=== PATIENT | male | born 1945 | race Caucasian/White ===

== ENCOUNTER → 2016-11-08 07:03 | Day surgery (SDC) | payer MEDICARE, BC ==
--- NOTE | 2016-11-05 15:33 | HP ---
DATE OF ADMISSION: 11/08/2016. This patient is scheduled for Same Day Surgery admission by Dr. Moore on November. DATE OF PREOPERATIVE HISTORY AND PHYSICAL EXAMINATION: Saturday, November 05, 2016. ATTENDING SURGEON: Dr. Mark Moore (dictated by Stella Truong NP). CHIEF COMPLAINT: Left groin hernia. HISTORY OF PRESENT ILLNESS: The patient is a 71-year-old male referring to Dr. Moore from Dr. Harper and Dr. Henderson for evaluation of a left inguinal hernia. The patient states this has become increasingly large, but he denies any significant pain. He denies any dysuria or changes in bowel habits, and denies any signs or symptoms to suggest incarceration or strangulation. Dr. Moore examined the patient and notes a left inguinal hernia, moderately large, extending down into the upper scrotal sac, soft and reducible. There is also a 3 cm umbilical hernia which is soft and reducible. Dr. Moore discussed the findings with the patient and has recommended open repair of the left inguinal hernia with mesh as a same day surgery procedure. Dr. Moore discussed the nature of the surgical procedure, the rationale for the procedure, the relevant risks and benefits, and today I reviewed the typical postoperative care and recovery. The patient and his have had a chance to ask questions and stated that they understand the information and are satisfied with the answers given to their questions. The patient will sign surgical consent on the day of surgery. The patient has been cleared by Dr. Perdomo from Cardiology to proceed with surgery. PAST MEDICAL HISTORY: Significant for aortic stenosis with aortic valve replacement and two vessel coronary artery bypass grafting July 2016; hypertension; myasthenia gravis, adult form; paroxysmal atrial fibrillation; hyperlipidemia; benign prostatic hypertrophy; impaired hearing; deep vein thrombosis left upper extremity 1998. PAST SURGICAL HISTORY: Aortic valve replacement with a tissue valve #[id number] [employer], July 2016 at [facility] in [place], [place], and at that same setting he had CABG times two; transurethral resection of prostate; total right knee replacement; arthroscopic surgery left knee; cataract extraction; and tonsillectomy in childhood. MEDICATIONS: 1. Mycophenolate Mofetil 500 mg two tablets b.i.d. 2. Zolpidem 5 mg p.o. at bedtime. 3. Valsartan 40 mg p.o. daily. 4. Azopt one percent one drop left eye t.i.d. 5. Androderm 2 mg per 24 hours as directed. 6. Simvastatin 20 mg p.o. daily. 7. Levitra 20 mg p.o. daily as needed. 8. Travatan Z 0.004 percent one drop left eye daily. 9. Aspirin 81 mg p.o. daily. The patient was instructed to continue the aspirin in the perioperative period. 10. APAP 325 mg two tablets q.6 prn. 11. Metoprolol 12.5 mg p.o. b.i.d. 12. Loratadine 10 mg prn allergy symptoms. ALLERGIES: No known drug allergies. He does have ENVIRONMENTAL ALLERGIES. FAMILY HISTORY: Father , age 49 with myocardiac infarction; mother , age 88 with a history of colon cancer and congestive heart failure. No known anesthesia complications, bleeding tendencies or clotting disorders. SOCIAL HISTORY: He is and his accompanies him to the visit today. He is a nonsmoker and denies the use of alcohol or other substances. He is currently in cardiac rehab and also walks daily for exercise. REVIEW OF SYSTEMS: He denies any racing or palpitations of the heart. He denies chest pain, pressure, heaviness or exercise intolerance, and he is currently in cardiac rehab. He denies any shortness of breath with exertion. He denies any recent upper respiratory infections. He denies any anesthesia complications. He denies any gastrointestinal complaints. We did discuss the importance of the prevention of constipation and he will start Colace preoperatively. He denies any dysuria. He does have a history of deep vein thrombosis of the left upper extremity in 1998 without any recurrence and there is no history of pulmonary embolism. He denies any bleeding tendencies and has never received a blood transfusion. He does have a history of myasthenia gravis , adult form, and is followed by Dr. Arvizu. He has normal sensory and motor function in all extremities and a normal gait. He has been cleared by Dr. Perdomo from Cardiology to proceed with surgery. Please see the attached consultation note for details. PHYSICAL EXAMINATION GENERAL: The patient is a 71-year-old male, well-developed, well-nourished, in no acute distress. VITAL SIGNS: Height 69 inches, weight 171 pounds. Blood pressure 130/72, pulse 72 and regular, respiratory rate 20. SKIN: Warm, dry, and intact. HEENT: Benign. NECK: Supple. No cervical lymphadenopathy. No carotid bruits. BACK: No CVA tenderness. LUNGS: Breath sounds bilaterally clear and equal. No wheezes, rales or rhonchi. HEART: Regular rate and rhythm. There is a 2/6 systolic murmur heard in the right upper sternal border. ABDOMEN: Active bowel sounds, soft, and nontender throughout. Nondistended. Obvious reducible umbilical hernia, nontender. No obvious masses or organomegaly. Inguinal exam as done by Dr. Moore revealed a left inguinal hernia that is moderately large, that extends down into the upper scrotal sac and is soft and reducible. The right inguinal area is without hernia. EXTREMITIES: Warm without edema or skin ulcerations. GENITALIA: Exam done recently, not repeated. RECTAL: Exam done recently, not repeated. NEUROLOGIC: Alert and oriented times three, steady gait. IMPRESSION: Left inguinal hernia. PLAN: Same Day Surgery admission to Dr. Moore's service on November for open repair of left inguinal hernia with mesh. ENRIQUETA TRUONG NP CC: Dr. Harper; Dr. Henderson* [id number]/[facility] #: [id number] MTDD
[~2016-11-08 07:03] MED LIST: Acetaminophen TAB* 325 MG PO PRN; Buffered Lidocaine 1% SYR 3ML* 3 ML/SYR SYRINGE INTRADERM ONE; Buffered Lidocaine 1% SYR 3ML* 3 ML/SYR SYRINGE ONE; Bupivacaine 0.5% W/EPI SDV* 30 ML VIAL ONE; Dexamethasone IV* 4 MG/ML 1 ML (4 MG) ONE; DiMENhydriNATE IV* 50 MG/ML VIAL IV PUSH PRN; Famotidine IV* 10 MG/ML 2 ML (20 mg) ONE; HYDROcodone/ACETAMIN 5-325 MG* 1 TAB PO PRN; Heparin VIAL(*) 5000 UNITS/ML VIAL (FIVE THOUSAND) ONE; Ketorolac INJ* 30 MG/ML 1 ML VIAL ONE; Lidocaine 1% INJ* 10 MG/ML 30 ML SDV ONE; Lidocaine 2% PF * 5 ML VIAL ONE; Midazolam* 1 MG/ML 2 ML VIAL (2 MG) ONE; Ondansetron INJ* 2 MG/ML VIAL IV PRN; PROCHLORPERAZINE INJ 5 MG/ML 2 ML VIAL IV PRN; Propofol* 10 MG/ML 20 ML BTL IV PUSH ONE; ceFAZolin 2 GM PREMIX (*) 2 GM/50 ML BAG IVPB ONE; fentaNYL* 50 MCG/ML 2 ML VIAL (100 MCG VIAL) ONE
[2016-11-08 12:04] VITALS: BP 138/82
--- NOTE | 2016-11-09 02:15 | OP ---
DATE OF OPERATION: 11/08/16 - MERGED WITH [facility] DATE OF : 41 SURGEON: Mark Moore MD REVIEW ASSISTANT: Nikole Martinez NP ANESTHESIOLOGIST: Dr. Simental. ANESTHESIA: LMAC anesthesia. PRE-OP DIAGNOSIS: Left inguinal hernia. POST-OP DIAGNOSIS: Left inguinal hernia. OPERATIVE PROCEDURE: Open repair of left inguinal hernia with mesh. DESCRIPTION OF PROCEDURE: The patient was supine on the operating room table. After adequate intravenous sedation, compression stockings, and Dorothea Hugger warmer; the left groin was prepped with antiseptic and draped in a sterile fashion. Local infiltrative anesthesia was administered and approximately 6 to 8 cm incision was created and dissection carried down to the external oblique, which was opened in the direction of its fibers. Cord structures were encircled with a [place] drain, tented upward. Direct space was without hernia. Indirect space had an obvious hernia, which was dissected free and reduced. It was moderately large. A cone mesh plug was placed into the internal ring, sutured to the transversus abdominis and inguinal ligament. Second piece of mesh was placed over the inguinal floor, sutured at the tubercle. Tails were split, brought around the cord structures, and tacked down laterally. External oblique was closed with 2-0 Polysorb, Dotty's with 3- 0 Polysorb, skin with 4-0 Surgipro, and followed by a sterile dressing. He tolerated the procedure well, was brought to recovery in good condition. There were no complications, no drains, and no pathologic specimens. Sponge and instruments counts correct. Estimated blood loss is 10 mL. CC: Dr. Dorado; Dr. Henderson* [id number]/[facility] #: [id number] [facility]
== END | disposition home or self-care (01) ==
LOC: OR 07:03
PROVIDERS: ATTEND Surgery
DX: K40.90 Unilateral inguinal hernia, without obstruction or gangrene, not specified as recurrent (principal); Z95.1 Presence of aortocoronary bypass graft; Z95.2 Presence of prosthetic heart valve; Z79.01 Long term (current) use of anticoagulants
CPT/HCPCS: C1781; J0690; J1100; J1644; J1885; J2250; J2704; J3010

== ENCOUNTER 2017-03-02 09:34 | Emergency (ER) | payer MEDICARE, BC ==
[2017-03-02 09:48] VITALS: BP 134/72
--- NOTE | 2017-03-02 10:58 | UC ---
Respiratory Complaint HPI - HPI Summary HPI Summary: Cough developed about 10 days ago, without fever. Assessed by his PMD because of this, and was given course of azithromycin because his breath sounds were course and he has myasthenia gravis. Completed course about 6 days ago, with some improvement in sinus symptoms. No fever, cough not productive, not short of breath. Concerned because he is travelling to [place] next week to see his brother whose health is compromised. - History of Current Complaint Chief Complaint: UCRespiratory Stated Complaint: COUGH,CHEST CONGESTION Time Seen by Provider: 03/02/17 10:47 Hx Obtained From: Patient, Family/Tape Calender - here with his Onset/Duration: Gradual Onset, Lasting Days - about 12 days. Timing: Intermittent Episodes Severity Initially: Moderate Character: Cough: Nonproductive Aggravating Factors: Allergens, Recumbent Position Alleviating Factors: OTC Meds - using mucinex, does use loratidine regularly. Associated Signs And Symptoms: Negative: Dyspnea, Fever, Pleuritic Chest Pain, Wheezing - Risk Factors Pulmonary Embolism Risk Factors: Negative Cardiac Risk Factors: Hypertension - hx of aortic valve replacement and bypass Pseudomonas Risk Factors: Negative - Allergies/Home Medications Allergies/Adverse Reactions: Allergies Allergy/AdvReac Type Severity Reaction Status Date / Time No Known Allergies Allergy Verified 03/02/17 09:48 PMH/Surg Hx/FS Hx/Imm Hx Endocrine History Of: Denies: Diabetes, Thyroid Disease Cardiovascular History Of: Reports: Cardiac Disorders - aortic valve replacement with bypass, Hypertension - CONTROL WITH MEDS Respiratory History Of: Denies: COPD, Asthma GI/ History Of: Denies: Ulcer, Renal Disease - Surgical History Surgical History: Yes Surgery Procedure, Year, and Place: 1956 APPENDECTOMY, [facility]. TONSILLECTOMY AND ADENOIDECTOMY AT AGE 2, [facility]. 1970 RIGHT KNEE SURGERY, [facility]. 1984 1989,1992 RIGHT KNEE SURGERY, [facility]. July 2016 open heart. 1998 TURP, [facility]. 2004 RIGHT KNEE TOTAL REPLACEMENT, [facility]. 2005 RIGHT KNEE MANIPULATION, [facility]. 2009 LEFT KNEE ARTHROSCOPIC SURGERY, [facility]. 07/2016 OPEN HEART SURGERY WITH VALVE REPLACEMENT, CABG, [facility] [place]. 2012 BILATERAL CATARACT EXTRACTION WITH IOL IMPLANT, [facility]. T&A - Family History Known Family History: Positive: Cardiac Disease, Other - COLON CA - Social History Occupation: Retired Lives: With Family Alcohol Use: None Substance Use Type: None Smoking Status (MU): Never Smoked Tobacco Type: Pipe Amount Used/How Often: VERY LIGHT, VERY SHORT TIME Have You Smoked in the Last Year: No When Did the Patient Quit Smoking/Using Tobacco: 50+ YEARS AGO - Immunization History Most Recent Influenza Vaccination: fall 2014 Review of Systems Constitutional: Fatigue - chronic due to MG Skin: Negative Eyes: Negative ENT: Other - sinus symptoms have decreased; does not have post nasal drainage Respiratory: Cough Cardiovascular: Negative Gastrointestinal: Negative Genitourinary: Negative Motor: Weakness Neurovascular: Negative Musculoskeletal: Negative Neurological: Negative Psychological: Negative All Other Systems Reviewed And Are Negative: Yes Physical Exam Triage Information Reviewed: Yes Appearance: Ill-Appearing - looks chronically unwell and fatigued. Vital Signs: Initial Vital Signs Temp 97.7 F 03/02/17 09:41 Pulse 64 03/02/17 09:41 Resp 16 03/02/17 09:41 BP 134/72 03/02/17 09:41 Pulse Ox 97 03/02/17 09:41 Eyes: Positive: Conjunctiva Clear ENT: Positive: Pharyngeal erythema, TMs normal Neck: Positive: Supple, Nontender Respiratory: Positive: No respiratory distress, Rhonchi - some scattered course breath sounds.. Negative: Respiratory distress, Decreased breath sounds, Accessory muscle use, Crackles, Wheezing Cardiovascular: Positive: Murmur:Sys:Grade _?_/ - 1 Abdomen Description: Positive: Nontender, Other: - umbilical hernia Musculoskeletal Exam: Normal Psychological Exam: Normal Skin Exam: Normal UC Diagnostic Evaluation - Laboratory O2 Sat by Pulse Oximetry: 97 Respiratory Course/Dx - Course Course Of Treatment: monitor, symptomatic treatment. Discussed no clinical evidence of pneumonia. - Differential Dx/Diagnosis Differential Diagnosis/HQI/PQRI: Bronchitis, CHF, Laryngitis Provider Diagnoses: chest congestion, likely viral or allergic in nature. will continue symptomatic treatment. Discharge - Discharge Plan Condition: Stable Disposition: HOME Patient Education Materials: Acute Cough (ED) Additional Instructions: Your cough is most likely viral or allergic. Continue use of mucinex and your antihistamine. I do not see a reason not to travel next week.
== END 2017-03-02 11:14 | disposition home or self-care (01) ==
LOC: UCCORT 09:34
DX: R09.89 Other specified symptoms and signs involving the circulatory and respiratory systems (principal)
CPT/HCPCS: 99211; G0463

== ENCOUNTER 2017-03-29 08:21 | Emergency (ER) | payer MEDICARE, BC ==
[2017-03-29 08:40] VITALS: BP 114/73
--- NOTE | 2017-03-29 09:02 | UC ---
Dizzy HPI HPI Summary: sudden onset dizziness x 1 hr ago got dizzy as he was doing gardening , was exerting himself more than usual to dig a hole no chest pain , no sob, became lightheaded and vomited once . - History Of Current Complaint Chief Complaint: UCGeneralIllness Stated Complaint: DIZZINESS, LIGHT HEADED Time Seen by Provider: 03/29/17 08:36 Hx Obtained From: Patient Onset/Duration: Sudden Onset, Lasting Hours - 1, Worse Since Timing: Constant Severity Initially: Moderate Severity Currently: Moderate Character: Lightheaded, Dizzy Aggravating Factor(s): Exertion Alleviating Factor(s): Rest Associated Signs And Symptoms: Positive: Nausea, Vomiting. Negative: Diaphoresis, Tinnitus, Chest Pain, SOB, Palpitations, Unsteady Gait, Visual Changes, Decreased Oral Intake, Change In Diet, OTC Medications - Risk Factors Cardiac Risk Factors: CAD - Allergies/Home Medications Allergies/Adverse Reactions: Allergies Allergy/AdvReac Type Severity Reaction Status Date / Time No Known Allergies Allergy Verified 03/29/17 08:31 PMH/Surg Hx/FS Hx/Imm Hx Cardiovascular History: Cardiac Disease, Hypertension - Surgical History Surgical History: Yes Surgery Procedure, Year, and Place: 6 APPENDECTOMY, [facility]. TONSILLECTOMY AND ADENOIDECTOMY AT AGE 2, [facility]. 1969 RIGHT KNEE SURGERY, [facility]. 1984 1989,1992 RIGHT KNEE SURGERY, [facility]. July 2016 open heart. 1998 TURP, [facility]. 2004 RIGHT KNEE TOTAL REPLACEMENT, [facility]. 2005 RIGHT KNEE MANIPULATION, [facility]. 2009 LEFT KNEE ARTHROSCOPIC SURGERY, [facility]. 07/2016 OPEN HEART SURGERY WITH VALVE REPLACEMENT, CABG, [facility]. 2011 BILATERAL CATARACT EXTRACTION WITH IOL IMPLANT, [facility]. T&A. hernia 11/2016. appy - Family History Known Family History: Positive: Cardiac Disease, Other - COLON CA - Social History Alcohol Use: None Substance Use Type: None Smoking Status (MU): Never Smoked Tobacco Type: Pipe Amount Used/How Often: VERY LIGHT, VERY SHORT TIME Have You Smoked in the Last Year: No When Did the Patient Quit Smoking/Using Tobacco: 50+ YEARS AGO - Immunization History Most Recent Influenza Vaccination: fall 2014 Review of Systems Constitutional: Fatigue Skin: Negative Eyes: Negative ENT: Negative Respiratory: Negative Cardiovascular: Negative Gastrointestinal: Vomiting Neurological: Weakness All Other Systems Reviewed And Are Negative: Yes Physical Exam Triage Information Reviewed: Yes Appearance: Well-Appearing, No Pain Distress, Well-Nourished Vital Signs: Initial Vital Signs Temp 97.5 F 03/29/17 08:34 Pulse 69 03/29/17 08:34 Resp 18 03/29/17 08:34 BP 114/73 03/29/17 08:34 Pulse Ox 96 03/29/17 08:34 Vital Signs Reviewed: Yes Eyes: Positive: Conjunctiva Clear ENT: Positive: Normal ENT inspection, Hearing grossly normal, Pharynx normal Neck exam: Normal Neck: Positive: Supple, Nontender, No Lymphadenopathy Respiratory: Positive: Chest non-tender, Lungs clear, Normal breath sounds Cardiovascular: Positive: RRR, No Murmur, Pulses Normal Abdomen Description: Positive: Nontender, Soft, Distended, Guarding. Negative: CVA Tenderness (R), CVA Tenderness (L) Bowel Sounds: Positive: Present Musculoskeletal: Positive: Strength Intact, ROM Intact, No Edema Neurological: Positive: Alert, Muscle Tone Normal Skin Exam: Normal Dizzy Course/Dx - Differential Dx/Diagnosis Provider Diagnoses: dizziness Discharge - Discharge Plan Condition: Stable Disposition: HOME Patient Education Materials: Dizziness (ED) Referrals: Sam Dorado MD [Primary Care Provider] - 5 Days Additional Instructions: please do not exert yourself take frequent breaks when doing any home project or gardening go to ED if having chest pain , shortness of breath
== END 2017-03-29 09:07 | disposition home or self-care (01) ==
LOC: UCCORT 08:21
DX: R42 Dizziness and giddiness (principal); Z95.2 Presence of prosthetic heart valve; I10 Essential (primary) hypertension
CPT/HCPCS: 93005; 99212; G0463

== ENCOUNTER 2018-06-14 07:10 | Emergency (ER) | payer MEDICARE, BC ==
[2018-06-14 07:30] VITALS: BP 141/82
--- NOTE | 2018-06-14 07:54 | UC ---
Ear Complaint HPI - HPI Summary HPI Summary: Per enrollment management manager "Wears hearing aids. Took one out of his right ear this mornign and didn't see part of the hearing aid that should have been attached. Has come off in ear before. Would like to make sure it's not in there before putting new hearing aid in. " - History of Current Complaint Chief Complaint: UCEar Stated Complaint: RIGHT EAR COMPLAINT Time Seen by Provider: 06/14/18 07:15 Pain Intensity: 0 - Allergies/Home Medications Allergies/Adverse Reactions: Allergies Allergy/AdvReac Type Severity Reaction Status Date / Time No Known Allergies Allergy Verified 06/14/18 07:28 Home Medications: Home Medications Losartan TAB* [Cozaar TAB*] 1 dose PO DAILY 06/14/18 [History Confirmed 06/14/18 ] PMH/Surg Hx/FS Hx/Imm Hx Previously Healthy: Yes - Surgical History Surgical History: Yes Surgery Procedure, Year, and Place: 1955 APPENDECTOMY, [facility]. TONSILLECTOMY AND ADENOIDECTOMY AT AGE 2, [facility]. 1969 RIGHT KNEE SURGERY, [facility]. 1984 1989,1992 RIGHT KNEE SURGERY, [facility]. July 2016 open heart. 1998 TURP, [facility]. 2004 RIGHT KNEE TOTAL REPLACEMENT, [facility]. 2005 RIGHT KNEE MANIPULATION, [facility]. 2009 LEFT KNEE ARTHROSCOPIC SURGERY, [facility]. 07/2016 OPEN HEART SURGERY WITH VALVE REPLACEMENT, CABG, [facility] [place]. 2011 BILATERAL CATARACT EXTRACTION WITH IOL IMPLANT, [facility]. hernia 11/2016 - Family History Known Family History: Positive: Cardiac Disease, Other - COLON CA - Social History Alcohol Use: None Substance Use Type: None Smoking Status (MU): Never Smoked Tobacco Type: Pipe Amount Used/How Often: VERY LIGHT, VERY SHORT TIME Have You Smoked in the Last Year: No When Did the Patient Quit Smoking/Using Tobacco: 50+ YEARS AGO - Immunization History Most Recent Influenza Vaccination: fall 2014 Review of Systems Constitutional: Negative Skin: Negative Eyes: Negative ENT: Negative Respiratory: Negative Cardiovascular: Negative Gastrointestinal: Negative Genitourinary: Negative Motor: Negative Neurovascular: Negative Musculoskeletal: Negative Neurological: Negative Psychological: Negative Is Patient Immunocompromised?: No All Other Systems Reviewed And Are Negative: Yes Physical Exam Triage Information Reviewed: Yes Appearance: Well-Appearing - very pleasant Vital Signs: Initial Vital Signs Temp 97.7 F 06/14/18 07:20 Pulse 66 06/14/18 07:20 Resp 17 06/14/18 07:20 BP 141/82 06/14/18 07:20 Pulse Ox 97 06/14/18 07:20 Vital Signs Reviewed: Yes ENT Exam: Normal ENT: Positive: TMs normal - right ear canal w/ clear plastic piece of hearing aid lodged in canal. removed easily w/ forceps. tolerated well. no trauma. no bleeding. TM intact Neck exam: Normal Respiratory: Positive: Lungs clear Cardiovascular: Positive: RRR Musculoskeletal Exam: Normal Neurological Exam: Normal Psychological Exam: Normal Skin Exam: Normal Ear Complaint Course/Dx - Course Course Of Treatment: Removed easily with forceps. tolerated well. - Differential Dx/Diagnosis Differential Diagnosis/HQI/PQRI: Foreign Body Provider Diagnoses: right ear foreign body Discharge - Sign-Out/Discharge Documenting (check all that apply): Patient Departure All imaging exams completed and their final reports reviewed: No Studies - Discharge Plan Condition: Good Disposition: HOME Patient Education Materials: Ear Foreign Body (ED) Referrals: Sam Dorado MD [Primary Care Provider] - If Needed - Billing Disposition and Condition Condition: GOOD Disposition: Home
== END 2018-06-14 07:58 | disposition home or self-care (01) ==
LOC: UCCORT 07:10
DX: T16.1XXA Foreign body in right ear, initial encounter (principal); X58.XXXA Exposure to other specified factors, initial encounter; Y93.89 Activity, other specified; Y92.9 Unspecified place or not applicable; Z87.891 Personal history of nicotine dependence
CPT/HCPCS: 69200; 99211; G0463

== ENCOUNTER 2018-06-27 07:26 | Emergency (ER) | payer MEDICARE, BC ==
[2018-06-27 07:48] VITALS: BP 141/74
--- NOTE | 2018-06-27 08:24 | UC ---
HPI Febrile Illness - HPI Summary HPI Summary: Pt present with . States x 3 days progressive fatigue and myalgia. Pt states feels weak and tired. this am had temp 101.2. Pt with a h/o myasthenia gravis and was instructed to be evalauted if developed fever. no congesiton, cough, cp, sob. No n/v/d decreased appetite no dysuria med reviewd this visit - History of Current Complaint Chief Complaint: UCGeneralIllness Time Seen by Provider: 06/27/18 07:56 Hx Obtained From: Patient, Family/Sap Developer Onset/Duration: Started Days Ago Pain Intensity: 0 - Allergy/Home Medications Allergies/Adverse Reactions: Allergies Allergy/AdvReac Type Severity Reaction Status Date / Time No Known Allergies Allergy Verified 06/27/18 07:36 Home Medications: Home Medications Valsartan TAB* [Diovan TAB*] 40 mg PO DAILY 06/27/18 [History Confirmed 06/27/18 ] PMH/Surg Hx/FS Hx/Imm Hx Previously Healthy: Yes - Surgical History Surgical History: Yes Surgery Procedure, Year, and Place: 6 APPENDECTOMY, [facility]. TONSILLECTOMY AND ADENOIDECTOMY AT AGE 2, [facility]. 1969 RIGHT KNEE SURGERY, [facility]. 1984 1989,[place] [facility] [place]. [place] [facility] [place] [facility] [place] [facility] [place] LEFT KNEE [place]THROSCOPIC [place] [facility] [place] 07/[place] OPEN HEART SURGERY WITH VALVE REPLACEMENT, CABG, [facility]. 2011 BILATERAL CATARACT EXTRACTION WITH IOL IMPLANT, [facility]. hernia 11/2016 - Family History Known Family History: Positive: Cardiac Disease, Other - COLON CA - Social History Occupation: Retired Lives: With Family Alcohol Use: None Substance Use Type: None Smoking Status (MU): Never Smoked Tobacco Type: Pipe Amount Used/How Often: VERY LIGHT, VERY SHORT TIME Have You Smoked in the Last Year: No When Did the Patient Quit Smoking/Using Tobacco: 50+ YEARS AGO - Immunization History Most Recent Influenza Vaccination: fall 2014 Review of Systems Constitutional: Fever, Fatigue Neurological: Weakness All Other Systems Reviewed And Are Negative: Yes Physical Exam - Summary Physical Exam Summary: Vital Signs Reviewed: Yes A+Ox3, no distress, tired appearing Eyes: Conjunctiva Clear, IRMA. EOM intact and full ENT: Hearing grossly normal TM x 2 clear, mmoist, uvula midline, no exudate, no erythema Neck: Positive: Supple Respiratory: Positive: No respiratory distress, No accessory muscle use + CTA throughout no w/r Cardiovascular: RRR nl s1, s2 no m/r CBT <2 sec abd soft + BS nt/nd no guarding, no distension Musculoskeletal Exam: THOMPSON x 4 without difficulty Strength Intact, ROM Intact Neurological: Positive: Alert, + sensation throughout Psychological: Positive: Normal Response To Family Skin: Positive: no rash, no ecchymosis Triage Information Reviewed: Yes Vital Signs: Initial Vital Signs Temp 99.1 F 06/27/18 07:39 Pulse 85 06/27/18 07:39 Resp 22 06/27/18 07:39 BP 141/74 06/27/18 07:39 Pulse Ox 97 06/27/18 07:39 Course/Dx - Course Course Of Treatment: pt with progressive fatigue and weakness. pt with fever this am. pt with h/o myatshtehia gravis. VSS, no focal area of infection. urine with ketones. recommend to ED for further eval - pt in agreement. Spoke with Dr. Estrada at [facility] - Diagnoses Clinic Provider Diagnoses: fever. weakness Discharge - Sign-Out/Discharge Documenting (check all that apply): Patient Departure All imaging exams completed and their final reports reviewed: No Studies - Discharge Plan Condition: Stable Disposition: HOME Patient Education Materials: Ear Foreign Body (ED), Fever in Adults (ED) Referrals: Sam Dorado MD [Primary Care Provider] - Additional Instructions: The doctor that evaluated you today thinks that you need additional testing that can be completed the emergency department. It is recommended that you go directly to emergency department for further evaluation. This evaluation may include blood work and imaging. This testing will be directed and decided by the provider that evaluates you at the emergency department. If pain becomes worse, you feel lightheaded, you have uncontrolled vomiting, or you have any other concerns while you are being driven to emergency department as recommended to pullover and contact 911. - Billing Disposition and Condition Condition: STABLE Disposition: Home
== END 2018-06-27 08:31 | disposition home or self-care (01) ==
LOC: UCCORT 07:26
DX: R50.9 Fever, unspecified (principal); R53.1 Weakness; Z96.651 Presence of right artificial knee joint; Z95.2 Presence of prosthetic heart valve; Z95.1 Presence of aortocoronary bypass graft; Z85.038 Personal history of other malignant neoplasm of large intestine; Z87.891 Personal history of nicotine dependence
CPT/HCPCS: 69200; 81003; 99212; G0463

== ENCOUNTER 2018-07-06 09:47 | Emergency (ER) | payer MEDICARE, BC ==
[2018-07-06 10:11] VITALS: BP 131/82
--- NOTE | 2018-07-06 10:47 | UC ---
HPI Febrile Illness - HPI Summary HPI Summary: Fever started about 8 days ago. He was seen here and then sent to ED and was admitted at [facility]. Their work up was negative and he was discharged on antibiotics. He has had some diffuse muscle fatigue and malaise since. No specific symptoms until today when he developed a mild sore throat. He denies urinary symptoms, cough, sinus pain, ear pain, headache, neck stiffness, abd pain or diarrhea, skin changes or redness or ulceration, swelling. He denies rigors. He says mainly he is napping more, eating less, and drinking enough. He does not feel that he is worsening but he is also not getting better. this past , transthoracic echo was normal. - History of Current Complaint Chief Complaint: UCRespiratory Time Seen by Provider: 07/06/18 10:06 Hx Obtained From: Patient, Family/Jackhammer Operator Onset/Duration: Started Days Ago, Atraumatic, Still Present Timing: Constant, Lasting Days Initial Severity: Moderate Current Severity: Moderate Pain Intensity: 4 Aggravating Factors: Nothing Alleviating Factors: Nothing Associated Signs and Symptoms: Arthralgia, Other: - malaise. - Allergy/Home Medications Allergies/Adverse Reactions: Allergies Allergy/AdvReac Type Severity Reaction Status Date / Time No Known Allergies Allergy Verified 07/06/18 10:11 Home Medications: Home Medications Losartan TAB* [Cozaar TAB*] 25 mg PO DAILY 07/06/18 [History Confirmed 07/06/18] PMH/Surg Hx/FS Hx/Imm Hx Previously Healthy: No - Myesthenia Gravis. On cellcept. Cardiovascular History: Cardiac Disease - Surgical History Surgical History: Yes Surgery Procedure, Year, and Place: 1956 APPENDECTOMY, [facility]. TONSILLECTOMY AND ADENOIDECTOMY AT AGE 2, [facility]. 1969 RIGHT KNEE SURGERY, [facility]. 1984 1989,1992 RIGHT KNEE SURGERY, [facility] [place]. July 2016 open heart. 1998 TURP, [facility] [place]. 2004 RIGHT KNEE TOTAL REPLACEMENT, [facility] [place]. 2005 RIGHT KNEE MANIPULATION, [facility] [place]. 2009 LEFT KNEE ARTHROSCOPIC SURGERY, [facility] [place]. 07/2016 OPEN HEART SURGERY WITH VALVE REPLACEMENT, CABG, [facility] [place]. 2012 BILATERAL CATARACT EXTRACTION WITH IOL IMPLANT, [facility]. hernia 11/2016 - Family History Known Family History: Positive: Cardiac Disease, Other - COLON CA - Social History Alcohol Use: None Substance Use Type: None Smoking Status (MU): Never Smoked Tobacco Type: Pipe Amount Used/How Often: VERY LIGHT, VERY SHORT TIME Have You Smoked in the Last Year: No When Did the Patient Quit Smoking/Using Tobacco: 50+ YEARS AGO - Immunization History Most Recent Influenza Vaccination: fall 2014 Review of Systems Constitutional: Fever, Fatigue Skin: Negative Eyes: Negative ENT: Sore Throat Musculoskeletal: Myalgia Is Patient Immunocompromised?: Yes All Other Systems Reviewed And Are Negative: Yes Physical Exam Triage Information Reviewed: Yes Appearance: Well-Appearing, No Pain Distress, Thin, Other: - Non toxic, alert, pleasant, walks to for urine sample and to x ray without assistance. Vital Signs: Initial Vital Signs Temp 97.4 F 07/06/18 09:59 Pulse 78 07/06/18 09:59 Resp 16 07/06/18 09:59 BP 131/82 07/06/18 09:59 Pulse Ox 99 07/06/18 09:59 Vital Signs Reviewed: Yes Eye Exam: Normal Eyes: Positive: Conjunctiva Clear ENT: Positive: Pharyngeal erythema, TMs normal, Uvula midline, Other - uvula swollen.. Negative: Nasal congestion, Nasal drainage, TM bulging, TM dull, TM red, Tonsillar swelling, Tonsillar exudate, Trismus, Muffled voice, Sinus tenderness Neck: Positive: Supple, Nontender, No Lymphadenopathy Respiratory: Positive: Lungs clear, Normal breath sounds, No respiratory distress, No accessory muscle use, Accessory muscle use. Negative: Respiratory distress, Decreased breath sounds, Crackles, Rhonchi, Stridor, Wheezing - He is winded after walking back from but he states this can be normal for him. Cardiovascular: Positive: No Murmur, Pulses Normal. Negative: Brisk Capillary Refill, Tachycardia, Bradycardia Abdomen Description: Positive: No Organomegaly, Soft. Negative: CVA Tenderness (R), CVA Tenderness (L), Distended, Guarding Musculoskeletal: Positive: Strength Intact, ROM Intact, No Edema Neurological: Positive: Alert, Muscle Tone Normal, Fatigued. Negative: Lethargic, Unresponsive, Abnormal Muscle Tone Psychological: Positive: Normal Response To Family, Age Appropriate Behavior. Negative: Abnormal Response To Family Skin Exam: Other - No osler nodes or splinter hemorrhages. Skin: Negative: rashes Course/Dx - Course Course Of Treatment: Fever for 7-8 days on cellcept without any obvious source. he does not appear to be very ill and workup has occurred this past week including inpatient overnight stay however, this combination of symptoms and risk factors are worrisome. [place] records never came despite faxing request to medical records and ED there. Our limited workup was neg. I spoke wiith Mrs Dr. Crowder and we agreed that repeat labs and rocephin would be prudent. Pt and both immediately agreed that they did not want futher workup and were only here for rapid strep test given new symptom of sore throat. I explained that his situation is worrisome and risky and infection is still a definite possibility. Infection can worsen to sepsis which can be life threatening. Despite this he states he feels well enough to go home and would like to simply f;u with Dr. Dorado. They agree to go to ED for any worsening symptoms. We have considered viral illness, meningitis, pneumonia, uti, fungal infection, septic joint for knee replacement. After giving him the AMA paperwork to sign, he then changes his mind and agrees to have the workup done. - Febrile Illness Differential Diagnoses: Abd. Infection, Abscess, Bacteremia, Cellulitis, Encephalitis, Endocarditis, Fever of Unknown Origin, Medication Reaction, Meningitis, Neoplasm, Pneumonia, Pyelonephritis, Sepsis, Tuberculosis, Toxic Shock Syndrome, Viremia - Diagnoses Clinic Provider Diagnoses: fever of unknown origen. immunocompromised status. Discharge - Sign-Out/Discharge Documenting (check all that apply): Patient Departure All imaging exams completed and their final reports reviewed: Yes - Discharge Plan Condition: Good Disposition: HOME Patient Education Materials: Fever in Adults (ED) Referrals: Sam Dorado MD [Primary Care Provider] - 1 Day Additional Instructions: Please return to the ED for any worsening symtoms of any kind. - Billing Disposition and Condition Condition: GOOD Disposition: Home
--- NOTE | 2018-07-06 11:01 | RAD ---
HISTORY: fever for 7 days. COMPARISONS: August 25, 2013 VIEWS: 4: Frontal dual-energy and lateral views of the chest. FINDINGS: CARDIOMEDIASTINAL SILHOUETTE: The cardiomediastinal silhouette is normal. A prosthetic heart valve is noted. STEPHEN: The stephen are normal. PLEURA: The costophrenic angles are sharp. No pleural abnormalities are noted. LUNG PARENCHYMA: The lungs are clear. ABDOMEN: The upper abdomen is clear. There is no subphrenic gas. BONES AND SOFT TISSUES: The patient is status post median sternotomy. Degenerative changes are noted. OTHER: None. IMPRESSION: NO ACTIVE CARDIOPULMONARY DISEASE.
[2018-07-06] MEDS ORDERED: cefTRIAXone VIAL(*) 1,000 MG VIAL IM ONE (12:00)
[2018-07-06] MEDS ORDERED: Lidocaine 1% MPF* 2 ML VIAL ONE (12:45)
[2018-07-07 10:51] LABS: Hematocrit 44 % (42-52); Hemoglobin 14.9 g/dl (14.0-18.0); Mean Corpuscular HGB Conc 34 g/dl (31-36); Mean Corpuscular Hemoglobin 33 pg (27-31); Mean Corpuscular Volume 96 fL (80-94); Platelet Count 267 10^3/ul (150-450); Red Blood Count 4.59 10^6/ul (4.00-5.40); Red Cell Distribution Width 13 % (10.5-15)
[2018-07-07 11:10] LABS: EGFR Non-African American 89.1 (>60)
[2018-07-07 11:26] LABS: ABS Basophils 0 10^3/ul (0-0.2); ABS Neutrophils 0.4 10^3/ul (1.5-7.7); Monocytes % 8 % (0-7)
--- NOTE | 2018-07-07 11:37 | UC ---
- Progress Note Progress Note: PLEASE CONTINUE TO TRY TO CONTACT PATIENT TO ASSURE THAT HE WENT TO THE ER jld Discharge - Sign-Out/Discharge Documenting (check all that apply): Post-Discharge Follow Up All imaging exams completed and their final reports reviewed: Yes - Discharge Plan Condition: Good Disposition: HOME Patient Education Materials: Fever in Adults (ED) Referrals: Sam Dorado MD [Primary Care Provider] - 1 Day Additional Instructions: Please return to the ED for any worsening symtoms of any kind. - Billing Disposition and Condition Condition: GOOD Disposition: Home
== END 2018-07-06 13:10 | disposition home or self-care (01) ==
LOC: UCCORT 09:47
DX: R50.9 Fever, unspecified (principal); D89.9 Disorder involving the immune mechanism, unspecified; Z95.2 Presence of prosthetic heart valve; Z95.1 Presence of aortocoronary bypass graft; Z87.891 Personal history of nicotine dependence
CPT/HCPCS: 36415; 71046; 80053; 81003; 85025; 85060; 85652; 86140; 86308; 87040; 87651; 96372; 99212; G0463; J0696

== ENCOUNTER 2019-02-13 18:33 | Emergency (ER) | payer MEDICARE, BC | END 2019-02-13 18:40 | disposition left against medical advice (07) | LOC: UCCORT 18:33 | DX: R50.9 Fever, unspecified (principal); Z53.21 Procedure and treatment not carried out due to patient leaving prior to being seen by health care provider ==

== ENCOUNTER 2019-06-14 07:31 | Emergency (ER) | payer MEDICARE, BC ==
--- OUTSIDE RECORDS SUMMARY | 2019-06-14 07:38 | XMS REPORT | Continuity of Care Document ---
:1945 External Reference #:[id number] Author Name Estela Perdomo M.D. (transmitted by agent of provider Ethel Garcia) Address [facility] [place] [address] Care Team Providers Name Role Phone Sam Dorado MD - Family Care Team Information Grain Processor Medicine Estela Perdomo MD - Cardiovascular Care Team Information Grain Processor Disease Radha Leonardo MD - Neurology Care Team Information Grain Processor [phone] Problems Active Problems Provider Date Myasthenia gravis, adult form Abimbola Arvizu M.D. Onset: 01/21/2015 Breathless - mild exertion Abimbola Arvizu M.D. Onset: 01/21/2015 Aortic valve disorder Estela Perdomo M.D. Onset: 09/23/2015 Essential hypertension Estela Perdomo M.D. Onset: 09/23/2015 Family history of ischemic heart disease and Estela Perdomo M.D. Onset: 2014 other diseases of the circulatory system Hyperlipidemia Estela Perdomo M.D. Onset: 09/23/2015 Coronary heart disease monitoring status Estela Perdomo M.D. Onset: 05/18/2019 Arteriosclerosis of coronary artery bypass Estela Perdomo M.D. Onset: 2016 graft Paroxysmal atrial fibrillation Estela Perdomo M.D. Onset: 08/03/2016 Heart valve replacement Estela Perdomo M.D. Onset: 08/03/2016 Atherosclerotic heart disease of [place] Estela Perdomo M.D. Onset: 06/22/2016 coronary artery with unspecified angina pectoris Dyspnea Estela Perdomo M.D. Onset: 06/22/2016 Social History Type Date Description Comments Sex Unknown Tobacco Use Start: Unknown Never Smoked Cigarettes Smoking Status Reviewed: 05/18/19 Never Smoked Cigarettes ETOH Use Denies alcohol use Tobacco Use Start: Unknown Patient has never some pipe smoking smoked during college year Recreational Drug Use Denies Drug Use Exercise Type/Frequency Exercises regularly walking 20min 4Xweek Allergies, Adverse Reactions, Alerts Active Allergies Reaction Severity Comments Date NKDA 07/23/2014 Hay Fever 09/23/2015 Dust And Mold 09/23/2015 Medications Active Medications SIG Qnty Indications Ordering Date Provider Losartan Potassium 1 by mouth every 90tabs Estela Perdomo, 05/01/2018 25mg day M.D. Tablets Amoxicillin 4 tablets 1 hour 4caps Estela Perdomo, 11/26/2016 500mg before dental M.D. Capsules work Mycophenolate Mofetil take two tablets 120tabs Radha Leonardo, 12/30/2012 by mouth twice a M.D. 500mg Tablets day Zolpidem Tartrate 1 tablet po qhs Unknown 5mg Tablets Androderm as directed Unknown 2mg/24HR Patches 24HR Simvastatin 1 po qd Unknown 20mg Tablets Levitra 1 by mouth every 10tabs Unknown 20mg Tablets day as needed Loratidine Seasonal prn Unknown 10mg Tablets Aspir-Low 1 by mouth every Unknown 81mg Tablets DR day Apap Extra Strength 2 tabs po bid Unknown 500mg Tablets Vitamin D 1 tab by mouth Unknown 1000Unit everyday Tablets Medications Administered in Office Medication SIG Qnty Indications Ordering Provider Date Technetium TC 99M Stanley Cooley M.D., 03/11/2018 Tetrofosmin, Per Unit Dose FACC, FASNC Up To 40 Millicuries Injection Depomedrol 20MG Darnell Ruiz M.D. 04/21/2010 Injection Depomedrol 40MG Leola Carmichael PA 09/28/2009 Injection Immunizations Description No Information Available Vital Signs Date Vital Result Comment 05/18/2019 1:43pm Height 69 inches 5'9" Weight 175.00 lb with shoes BP Systolic Sitting 111 mmHg Lue reg cuff BP Diastolic Sitting 62 mmHg Lue reg cuff BP Systolic Standing 111 mmHg Lue reg cuff BP Diastolic Standing 72 mmHg Lue reg cuff BMI (Body Mass Index) 25.8 kg/m2 Ejection Fraction 55-60% 02/24/2019 10:39am Height 69 inches 5'9" Weight 169.00 lb BP Systolic Sitting 108 mmHg BP Diastolic Sitting 68 mmHg Respiratory Rate 15 /min Pain Level 0 BMI (Body Mass Index) 25.0 kg/m2 Results Test Date Facility Test Result H/L Range Note Basic (BMP) 02/20/2019 N2N[facility] Import Sodium 140 mmol/L 135-146 1, 2 Potassium 4.2 mmol/L 3.5-5.2 Chloride# 106 mmol/L 97-110 3 Carbon Dioxide 28 mmol/L 24-34 Glucose 103 mg/dL 70-105 BUN 24 mg/dL 6-26 Creatinine 0.9 mg/dL 0.5-1.4 Calcium 8.8 mg/dL 8.5-10.5 4 Female Egfr 60 1 Low 5 Male Egfr 80 1 6 Anion Gap 6 mmol/L 5-15 7 CBC with Auto Diff-fcmg 02/20/2019 N2N[facility] Import WBC 6.5 K/uL 4.1-11 RBC 4.15 M/uL Low 4.6-6.1 Hemoglobin 13.8 gm/dL 13.5-18 Hematocrit 40.6 % Low 41-53 MCV 97.7 fL High 80-97 MCH 33.3 pg High 27-32 MCHC 34.0 g/dL 32-36 RDW 13.4 % 11.5-14.5 PLT Count 204 K/ul 140-400 MPV 8.2 FL 7.1-10.7 Neutrophil 72.6 % 35-75 Lymphocyte 14.9 % Low 16-52 Monocyte 10.9 % High 2-10 Eosinophil 0.9 % 0-5 Basophil 0.7 % 0-4 Abs Neutrophils 4.7 K/uL 2.1-8 Abs Lymphocytes 1.0 K/uL 0.8-5.5 Abs Monocytes 0.7 K/uL 0.1-1 Abs Eosinophils 0.1 K/uL 0-0.5 Abs Basophils 0.0 K/uL 0-0.3 1 Draw 02/20 after office visit 2 Updated reference range on new analyzer 3 Updated reference range on new analyzer 4 Updated reference range 02-04-2019 5 Concerning GFR Guidelines for Americans: Normal function or mild renal disease, if clinically at risk: >/= 60 mL/min Moderately decreased: 30-59 Severely decreased: 15-29 Renal failure: <15 There is reduced accuracy above 60ml/min/1.73 m squared, but the numeric value may be clinically useful in the near 60 range 6 Concerning GFR Guidelines: Normal function or mild renal disease, if clinically at risk: >/= 60 mL/min Moderately decreased: 30-59 Severely decreased: 15-29 Renal failure: <15 There is reduced accuracy above 60ml/min/1.73 m squared, but the numeric value may be clinically useful in the near 60 range Glomerular Filtration Rate (GFR) is estimated based on the CKD-EPI equation, which assumes a steady state for creatinine as recommended by the National Kidney Disease Education Program in conjunction with the National Institutes of Health and the National Kidney Foundation. Clinical conditions in which it may be necessary to measure GFR by using clearance methods include extremes of age and body size, severe malnutrition or obesity, diseases of skeletal muscle, paraplegia or quadriplegia, vegetarian diet, rapidly changing kidney function, and calculation of the dose of potentially toxic drugs that are excreted by the kidneys. 7 Updated Reference Range Procedures Date Code Description Status 05/18/2019 37899 EKG Tracing & Interpretation Completed 02/13/2018 99079010 Colonoscopy Completed Medical Devices Description No Information Available Encounters Type Date Location Provider Dx Diagnosis Office Visit 05/18/2019 [facility] Estela Perdomo, Z95.2 Presence of 1:50p Of Taylor Garza prosthetic heart valve I35.0 Nonrheumatic aortic (valve) stenosis I25.10 Athscl heart disease of [place] coronary artery w/o ang pctrs I10 Essential (primary) hypertension E78.5 Hyperlipidemia, unspecified Office Visit 02/24/2019 [facility]Saturnino Garcia G70.00 Myasthenia gravis 10:30a Neurologic Serv Of Greg Leonardo without (acute) Channel Manager exacerbation Z79.899 Other termite control servicer (current) drug therapy Assessments Date Code Description Provider 05/18/2019 Z95.2 Presence of prosthetic heart valve Estela Perdomo M.D. 05/18/2019 I35.0 Nonrheumatic aortic (valve) stenosis Estela Perdomo M.D. 05/18/2019 I25.10 Atherosclerotic heart disease of [place] Estela Perdomo M.D. coronary artery with 05/18/2019 I10 Essential (primary) hypertension Estela Perdomo M.D. 05/18/2019 E78.5 Hyperlipidemia, unspecified Estela Perdomo M.D. 02/24/2019 G70.00 Myasthenia gravis without (acute) exacerbation Radha Leonardo M.D. 02/24/2019 Z79.899 Other termite control servicer (current) drug therapy Radha Leonardo M.D. Plan of Treatment Future Appointment(s):11/24/2019 9:10 am - Viktor Jeter MD at [facility] AT Hgeizgki91/30/2020 9:00 am - Viktor Jeter MD at [facility] AT Kbqqhdlz75/26/2019 9:30 am - Radha Leonardo M.D. at [place] [facility]/18/2019 - Estela Perdomo M.D.Z95.2 Presence of prosthetic heart valveComments:Stable function based on my exam. Good function on echo last year.Follow up:1 yearI35.0 Nonrheumatic aortic (valve) smcneiqlQ77.10 Atherosclerotic heart disease of [place] coronary artery withComments:ECG normal.Recommendations:Continue with your current lifestyle with good exercise patterns and good diet. To prevent further build up of blockages: Keep BP controlled. Weight optimized. Cholesterol controlled. Stay active. Avoid smoking.I10 Essential (primary) hypertensionComments:Well controlledRecommendations:Continue current [id number] Hyperlipidemia, unspecifiedFollow up:Release: 2017 and 2018 lipids (if none done I will need to order). Functional Status Description No Information Available Mental Status Description No Information Available Referrals Description No Information Available
[2019-06-14 07:42] VITALS: BP 119/65
--- NOTE | 2019-06-14 08:40 | UC ---
UC General HPI - HPI Summary HPI Summary: Pt presents with c/o waking this morning with feeling confused and generalized malaise. 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 - History of Current Complaint Chief Complaint: UCGeneralIllness Stated Complaint: FEVER DIZZY ACHY Time Seen by Provider: 06/14/19 08:05 Hx Obtained From: Patient Onset/Duration: Sudden Onset, Still Present Timing: Constant Onset Severity: Mild Current Severity: Mild Pain Intensity: 0 Associated Signs & Symptoms: Positive: Dizziness, Weakness - Allergy/Home Medications Allergies/Adverse Reactions: Allergies Allergy/AdvReac Type Severity Reaction Status Date / Time No Known Allergies Allergy Verified 07/06/18 10:11 PMH/Surg Hx/FS Hx/Imm Hx Previously Healthy: Yes - has myasthenia Gravis Cardiovascular History: Cardiac Disease - Surgical History Surgical History: Yes Surgery Procedure, Year, and Place: 1955 APPENDECTOMY, [facility]. TONSILLECTOMY AND ADENOIDECTOMY AT AGE 2, [facility]. 1969 RIGHT KNEE SURGERY, [facility]. 1984 1989,1992 RIGHT [place] [facility] [place] 2016 [place]. 1998 [place]URP, [facility] [place]. 2004 RIGHT KNEE TOTAL REPLACEMENT, [facility] [place]. 2005 RIGHT KNEE MANIPULATION, [facility] [place]. 2009 LEFT KNEE ARTHROSCOPIC SURGERY, [facility] [place]. 07/2016 OPEN HEART SURGERY WITH VALVE REPLACEMENT, CABG, [facility] [place]. 2011 BILATERAL CATARACT EXTRACTION WITH IOL IMPLANT, [facility]. hernia 11/2016 - Family History Known Family History: Positive: Cardiac Disease, Other - [place]ON [place] - Social History Occupation: Retired Lives: With Family Alcohol Use: None Substance Use Type: None Smoking Status (MU): Never Smoked Tobacco Type: Pipe Amount Used/How Often: VERY LIGHT, VERY SHORT TIME Have You Smoked in the Last Year: No When Did the Patient Quit Smoking/Using Tobacco: 50+ YEARS AGO - Immunization History Most Recent Influenza Vaccination: fall 2014 Vaccination Up to Date: Yes Review of Systems All Other Systems Reviewed And Are Negative: Yes Constitutional: Positive: Fatigue Skin: Positive: Negative Eyes: Positive: Negative ENT: Positive: Negative Respiratory: Positive: Negative Cardiovascular: Positive: Negative Gastrointestinal: Positive: Negative Genitourinary: Positive: Negative Motor: Positive: Negative Neurovascular: Positive: Negative Musculoskeletal: Positive: Negative Neurological: Positive: Negative Psychological: Positive: Negative Is Patient Immunocompromised?: No Physical Exam Triage Information Reviewed: Yes Appearance: Well-Appearing Vital Signs: Initial Vital Signs Temp 98 F 06/14/19 07:38 Pulse 83 06/14/19 07:38 Resp 16 06/14/19 07:38 BP 119/65 06/14/19 07:38 Pulse Ox 97 06/14/19 07:38 Vital Signs Reviewed: Yes Eye Exam: Normal ENT Exam: Normal Dental Exam: Normal Neck exam: Normal Respiratory Exam: Normal Cardiovascular Exam: Normal Musculoskeletal Exam: Normal Neurological Exam: Normal Psychological Exam: Normal Skin Exam: Normal Course/Dx - Course Course Of Treatment: I spoke with Sofiya Dorado NP applications packager for Dr. Crowder and we discussed plan of care while at . Pt has follow up appointment with Dr. Dorado on at 0800. - Differential Dx - Multi-Symptom Differential Diagnoses: Urinary Tract Infection, Other - influenza - Diagnoses Provider Diagnosis: UTI (urinary tract infection) Discharge ED - Sign-Out/Discharge Documenting (check all that apply): Patient Departure All imaging exams completed and their final reports reviewed: No Studies - Discharge Plan Condition: Stable Disposition: HOME Prescriptions: Cephalexin CAP* [Keflex 500 CAP*] 500 mg PO Q8H #30 cap Patient Education Materials: Urinary Tract Infection in Men (ED) Referrals: Sam Dorado MD [Primary Care Provider] - 06/15/19 8:00 am - Billing Disposition and Condition Condition: STABLE Disposition: Home
[2019-06-14 08:43] LABS: Influenza A Molecular NEGATIVE (Negative); Influenza B Molecular NEGATIVE (Negative)
[2019-06-14 14:05] LABS: ABS Basophils 0.1 10^3/ul (0-0.2); ABS Lymphocytes 0.8 10^3/ul (1.0-4.8); ABS Neutrophils 17.8 10^3/ul (1.5-7.7); Eosinophil % 0.1 %; Hematocrit 45 % (42-52); Hemoglobin 15.2 g/dL (14.0-18.0); Lymphocyte % 4.2 %; Mean Corpuscular HGB Conc 34 g/dL (31-36); Mean Corpuscular Hemoglobin 32 pg (27-31); Mean Corpuscular Volume 95 fL (80-94); Mean Platelet Volume 8.4 fL (7.4-10.4); Platelet Count 234 10^3/uL (150-450); Red Cell Distribution Width 13 % (10-15); White Blood Count 19.7 10^3/uL (3.5-10.8)
[2019-06-14 14:17] LABS: Albumin/Globulin Ratio 1.8 (1-3); BUN/Creatinine Ratio 28.4 (8-20); Calcium 8.9 mg/dL (8.6-10.3); EGFR African American 93.3 (>60); EGFR Non-African American 77.1 (>60); Globulin 2.2 g/dL (2-4); Potassium 3.9 mmol/L (3.5-5.0); Total Bilirubin 1.1 mg/dL (0.2-1.0); Total Protein 6.2 g/dL (6.4-8.9)
--- NOTE | 2019-06-15 07:20 | ED ---
Progress - Progress Note Progress Note: THe patient's labs came back abnormal. His WBC count is 19.7 K. He has a UTI, and the note from the visit states confusion. This can be picture of sepsis. please call the patient to direct them to the ER for admission to the Hospital. The note states his primary doctor was called and he has follow up this morning at 8 am. Please send lab results to his primary care doctor. Course/Dx - Diagnoses Provider Diagnoses: UTI (urinary tract infection) Discharge ED - Sign-Out/Discharge Documenting (check all that apply): Patient Departure All imaging exams completed and their final reports reviewed: No Studies - Discharge Plan Condition: Stable Disposition: HOME Prescriptions: Cephalexin CAP* [Keflex 500 CAP*] 500 mg PO Q8H #30 cap Patient Education Materials: Urinary Tract Infection in Men (ED) Referrals: Sam Dorado MD [Primary Care Provider] - 06/15/19 8:00 am - Billing Disposition and Condition Condition: STABLE Disposition: Home
== END 2019-06-14 08:46 | disposition home or self-care (01) ==
LOC: UCCORT 07:31
DX: N39.0 Urinary tract infection, site not specified (principal); Z87.891 Personal history of nicotine dependence
CPT/HCPCS: 36415; 80053; 81003; 85025; 87077; 87086; 87186; 99212; G0463

== ENCOUNTER 2019-07-11 09:48 | Emergency (ER) | payer MEDICARE, BC ==
--- OUTSIDE RECORDS SUMMARY | 2019-07-11 10:07 | XMS REPORT | Continuity of Care Document ---
:1945 External Reference #:[id number] Author Name Sam Dorado MD Address [address] [place] [id number] Care Team Providers Name Role Phone Alejandra Machado - Ophthalmology Care Team Information Pressroom Supervisor Estela Perdomo Care Team Information Pressroom Supervisor [phone] Problems Active Problems Provider Date Glaucoma Sam Dorado MD Onset: 02/06/2012 Chronic rhinitis Sam Dorado MD Onset: 08/01/2010 Onychomycosis Sam Dorado MD Onset: 07/29/2008 Testicular hypofunction Sam Dorado MD Onset: 05/17/2008 Osteochondropathy Sam Dorado MD Onset: 10/10/2006 Myasthenia gravis Onset: 02/04/2006 Disturbance in speech Sam Dorado MD Onset: 01/24/2006 Displacement of lumbar intervertebral disc Sam Dorado MD Onset: 02/2006 without myelopathy Benign essential hypertension Sam Dorado MD Onset: 11/13/2005 Degenerative joint disease involving Sam Dorado MD Onset: 2005 multiple joints Family history of malignant neoplasm of Sam Dorado MD Onset: 2005 gastrointestinal tract Hearing loss Sam Dorado MD Onset: 11/13/2005 Benign prostatic hypertrophy with outflow Sam Dorado MD Onset: 04/2006 obstruction Impotence of organic origin Sam Dorado MD Onset: 11/13/2005 Localized, primary osteoarthritis of the Sam Dorado MD Onset: 11/13 lower leg Pure hypercholesterolemia Sam Dorado MD Onset: 11/13/2005 Disorders of initiating and maintaining Sam Dorado MD Onset: 2014 sleep Essential hypertension Sam Dorado MD Onset: 07/27/2015 Disturbance in sleep behavior Sam Dorado MD Onset: 07/27/2015 Benign neoplasm of colon Sam Dorado MD Onset: 07/27/2015 Aortic valve disorder Sam Dorado MD Onset: 09/05/2015 Heart valve replacement Sam Dorado MD Onset: 09/13/2016 Multi vessel coronary artery disease Sam Dorado MD Onset: 2015 Vitamin D deficiency Sam Dorado MD Onset: 06/11/2018 Social History Type Date Description Comments Sex Unknown ETOH Use Rarely consumes alcohol Tobacco Use Start: Unknown Patient has never smoked Smoking Status Reviewed: 06/11/18 Patient has never smoked Allergies, Adverse Reactions, Alerts Description No Known Drug Allergies Medications Active Medications SIG Qnty Indications Ordering Provider Date Vardenafil HCL Take One Tablet By 6tabs N52.9 Ave, 02/20/2019 20mg Mouth Every Day as MD Sam Tablets Needed as Directed Vitamin D-3 1 by mouth every OTC E55.9 Ave, 06/11/2018 1000Unit day MD Sam Capsules M85.89 Aspirin 1 by mouth every I25.10 Sam Dorado, 11/07/2016 81mg Chewtabs other day Androderm apply to skin 15units E29.1 Sam Dorado, 02/24/2016 2mg/24HR every other day - Patches 24HR for 24 hours Loratadine 1 po qd prn 477.9 Sam Dorado 02/06/2012 10mg Tablets allergies J Simvastatin Take One Tablet By 30tabs E78.00 Sam Dorado, 2006 20mg Mouth Every MD Tablets Evening I25.10 Zolpidem Tartrate 1/2 or 1 by mouth 30tabs F51.01 Sam Dorado, 5mg every night at Tablets bedtime as needed Mycophenolate Mofetil 2 po each morming G70.00 Abimbola Arvizu MD 500mg and 2 po each Tablets evening Losartan Potassium 1 by mouth every I10 Estela Perdomo 25mg day Tablets Tylenol PM Extra Unknown Strength 1000-50mg/30ML Liquid Cephalexin One by mouth Unknown 500mg Capsules three times a day for ten days History Medications Sulfamethoxazole/Trimethoprim DS [address], 2018 - 800-160mg Tablets twice a MD Sam 03/06/2019 day for 7 days Immunizations CPT Code Status Date Vaccine Reaction Lot # 07231 Given 03/01/2019 Shingrix (Shingles) Zoster Vaccine HZV, Recombinant, Subunit, Adj 08354 Given 07/25/2018 Fluzone Highdose Age 65 And Over Preservative & Antibiotic Free 19457 Given 07/16/2017 Fluzone Highdose Age 65 And [place] Over Preservative & Antibiotic Free 53170 Given 07/18/2015 Fluzone Highdose Age 65 And [place] Over Preservative & Antibiotic Free 56066 Given 01/25/2015 Prevnar 13 Pneumococal [id number] Conjugate Vaccine 25418 Given 07/13/2014 Afluria Or Fluvirin Flu Vac [place] Intramuscular 12379 Given 08/12/2013 Afluria Or Fluvirin Flu Vac [place]/HIGH DOSE Intramuscular FLUZONE 35297 Given 08/01/2011 Afluria Or Fluvirin Flu Vac Intramuscular 30923 Given 07/18/2010 Afluria Or Fluvirin Flu Vac AT HOME FIRE DEPT Intramuscular 21590 Given 07/18/2009 Afluria Or Fluvirin Flu Vac Intramuscular 15430 Given 07/29/2008 Afluria Or Fluvirin Flu Vac Intramuscular 72553 Given 07/29/2007 Afluria Or Fluvirin Flu Vac Intramuscular 28021 Given 09/24/2006 Pneumococcal 23 Immunization Adult Or Immunosuppressed Patient 36511 Given 08/02/2006 Afluria Or Fluvirin Flu Vac Intramuscular 60001 Given 06/01/1996 Tetanus And Diptheria Toxoids For Adult Use-preservative free 47276 Refused 07/03/2018 Fluzone Highdose Age 65 And Over WILL GET AT PHARMACY Preservative & Antibiotic Free Vital Signs Date Vital Result Comment 06/15/2019 7:56am Body Temperature 97.7 F Weight 171.00 lb Heart Rate 79 /min BP Systolic 134 mmHg BP Diastolic 80 mmHg Respiratory Rate 20 /min Height 68 inches 5'8" O2 % BldC Oximetry 95 % Ra BMI (Body Mass Index) 26.0 kg/m2 04/16/2019 10:33am Body Temperature 98.0 F Weight 171.00 lb Heart Rate 70 /min BP Systolic 126 mmHg BP Diastolic 72 mmHg Respiratory Rate 18 /min Height 68 inches 5'8" BMI (Body Mass Index) 26.0 kg/m2 Results Test Date Facility Test Result H/L Range Note CBC Auto Diff 06/14/2019 [facility] White Blood 19.7 10^3/uL High 3.5-10.8 1 Count Red Blood Count 4.70 10^6/uL Normal 4.18-5.48 Hemoglobin 15.2 g/dL Normal 14.0-18.0 Hematocrit 45 % Normal 42-52 Mean Corpuscular Volume 95 fL High 80-94 Mean Corpuscular Hemoglobin 32 pg High 27-31 Mean Corpuscular HGB Conc 34 g/dL Normal 31-36 Red Cell Distribution Width 13 % Normal 10-15 Platelet Count 234 10^3/uL Normal 150-450 Mean Platelet Volume 8.4 fL Normal 7.4-10.4 Abs Neutrophils 17.8 10^3/uL High 1.5-7.7 Abs Lymphocytes 0.8 10^3/uL Low 1.0-4.8 Abs Monocytes 1.0 10^3/uL High 0-0.8 Abs Eosinophils 0.0 10^3/uL Normal 0-0.6 Abs Basophils 0.1 10^3/uL Normal 0-0.2 Abs Nucleated RBC 0.0 10^3/uL Granulocyte % 90.2 % Lymphocyte % 4.2 % Monocyte % 5.2 % Eosinophil % 0.1 % Basophil % 0.3 % Nucleated Red Blood Cells % 0.0 Comp Metabolic Panel 06/14/2019 [facility] Sodium 138 mmol/L Normal 135-145 Potassium 3.9 mmol/L Normal 3.5-5.0 Chloride 106 mmol/L Normal 101-111 Co2 Carbon Dioxide 28 mmol/L Normal 22-32 Anion Gap 4 mmol/L Normal 2-11 Glucose 127 mg/dL High 70-100 Blood Urea Nitrogen 27 mg/dL High 6-24 Creatinine 0.95 mg/dL Normal 0.67-1.17 BUN/Creatinine Ratio 28.4 High 8-20 Calcium 8.9 mg/dL Normal 8.6-10.3 Total Protein 6.2 g/dL Low 6.4-8.9 Albumin 4.0 g/dL Normal 3.2-5.2 Globulin 2.2 g/dL Normal 2-4 Albumin/Globulin Ratio 1.8 Normal 1-3 Total Bilirubin 1.10 mg/dL High 0.2-1.0 Alkaline Phosphatase 68 U/L Normal 34-104 Alt 13 U/L Normal 7-52 Ast 16 U/L Normal 13-39 Egfr Non- 77.1 >60 Egfr 93.3 >60 2 Poc Urinalysis 06/14/2019 [facility] Poc Glucose, Urine Negative Negative Poc Bilirubin, Urine Negative Negative Poc Ketone, Urine 1+ Abnormal Negative Poc Specific [place], Urine 1.020 Normal 1.010-1.030 Poc Blood, Urine Trace-intact Abnormal Negative Poc pH, Urine 5.5 Normal 5-9 Poc Protein, Urine 1+ Abnormal Negative Poc Urobilinogen, Urine 0.2 Negative Poc Nitrite, Urine Positive Abnormal Negative Poc Leukocytes, Urine 3+ Abnormal Negative Poc Color, Urine Other Poc Clarity, Urine Cloudy 3 Rapid Influenza A 06/14/2019 [facility] Influenza A NEGATIVE Negative 4 & B Molecular Molecular Influenza B Molecular NEGATIVE Negative Laboratory test 03/09/2019 [facility] Urine Culture Microbiology res <SEE 5, 6 finding NOTE> Rout Urine W/ Micro 03/09/2019 [facility] Color YELLOW -RL Appearance CLEAR Spec Grav Urine 1.016 (1.003-1.030) PH Urine 5.5 (5.0-7.5) Leuk Esterase NEGATIVE (Neg) Nitrite Urine NEGATIVE (Neg) Protein Urine NEGATIVE (Neg) Glucose Urine NEGATIVE (Neg) Ketone Urine NEGATIVE (Neg) Urobilinogen 0.2 mg/dL (0-1.0) Bilirubin Urine NEGATIVE (Neg) Blood/HGB Urine NEGATIVE (Neg) Epithelial Cells NEGATIVE [HPF] (Neg) Hyaline Casts 0.6 [LPF] (0-5) Bacteria NEGATIVE [HPF] (Neg) Urine WBC 5.1 [HPF] (0-8) Urine RBC 0.6 [HPF] (0-3) 7 Rout Urine W/ Micro -RL 02/25/2019 [facility] Color YELLOW 8 Appearance CLOUDY Spec Grav Urine 1.029 (1.003-1.030) PH Urine 5.0 (5.0-7.5) Leuk Esterase 1+ Abnormal (Neg) Nitrite Urine POSITIVE (Neg) Protein Urine NEGATIVE (Neg) Glucose Urine NEGATIVE (Neg) Ketone Urine NEGATIVE (Neg) Urobilinogen 0.2 mg/dL (0-1.0) Bilirubin Urine NEGATIVE (Neg) Blood/HGB Urine NEGATIVE (Neg) Urine WBC * >150 [HPF] (0-5) Urine RBC 0-2 [HPF] (0-2) Epithelial Cells 1+ [HPF] Bacteria 4+ [HPF] 9 Laboratory test 02/25/2019 [facility] Urine Microbiology res Abnormal 10, 11 finding Culture <SEE NOTE> Basic (BMP) 02/20/2019 [facility] Sodium 140 mmol/L 135-1 12, 13 46 Potassium 4.2 mmol/L 3.5-5.2 Chloride# 106 mmol/L 97-110 14 Carbon Dioxide 28 mmol/L 24-34 Glucose 103 mg/dL 70-105 BUN 24 mg/dL 6-26 Creatinine 0.9 mg/dL 0.5-1.4 Calcium 8.8 mg/dL 8.5-10.5 15 Female Egfr 60 Low >60 16 Male Egfr 80 >60 17 Anion Gap 6 mmol/L 5-15 18 CBC with Auto Diff-fcmg 02/20/2019 [facility] WBC 6.5 K/uL 4.1-11.0 RBC 4.15 M/uL Low 4.60-6.10 Hemoglobin 13.8 gm/dL 13.5-18.0 Hematocrit 40.6 % Low 41.0-53.0 MCV 97.7 fL High 80.0-97.0 MCH 33.3 pg High 27.0-32.0 MCHC 34.0 g/dL 32.0-36.0 RDW 13.4 % 11.5-14.5 PLT Count 204 K/ul 140-400 MPV 8.2 FL 7.1-10.7 Neutrophil 72.6 % 35.0-75.0 Lymphocyte 14.9 % Low 16.0-52.0 Monocyte 10.9 % High 2.0-10.0 Eosinophil 0.9 % 0.0-5.0 Basophil 0.7 % 0.0-4.0 Abs Neutrophils 4.7 K/uL 2.1-8.0 Abs Lymphocytes 1.0 K/uL 0.8-5.5 Abs Monocytes 0.7 K/uL 0.1-1.0 Abs Eosinophils 0.1 K/uL 0.0-0.5 Abs Basophils 0.0 K/uL 0.0-0.3 Blood Culture 02/13/2019 [facility] Blood Culture NO GROWTH: 19, 20 (315)- - Aerobic FINAL <SEE NOTE> Blood Culture Anaerobic NO GROWTH: FINAL <SEE NOTE> 21 Differential-WBC Confirm 02/13/2019 [facility] Total Cells 100 #CELLS (315)- - Counted Neutrophils% 91 % High 33-73 Lymph% 5 % Low 20-42 Monocyte% 4 % Normal 0-10 Platelet Estimate NORMAL RBC Morphology NORMAL Slide Review 02/13/2019 [facility] Slide Review DIFF ORDERED (315)- - CBS 02/13/2019 [facility] White Blood 14.5 K/uL High 3.4-10. W/Automated (315)- - Count 5 Diff Red Blood Count 4.42 M/uL Normal 4.20-5.80 Hemoglobin 14.5 gm/dL Normal 12.8-17.0 Hematocrit 43.3 % Normal 38.0-48.0 Mean Cell Volume 98.0 fl High 80.0-96.0 Mean Corpuscular HGB 32.8 pg Normal 27.0-33.0 Mean Corpuscular HGB Conc 33.5 g/dL Normal 31.7-36.0 Platelet Count 161 K/uL Normal 155-360 Red Cell Distri Width SD 46.5 fl Normal 36-51 Red Cell Distri Width %CV 12.9 % Normal 11.6-15.8 Mean Platelet Volume 9.9 fl Normal 6.6-10.6 Neut% 89.9 % High 33.0-73.0 Lymph % 4.8 % Low 20.0-42.0 [place] % 3.8 % Normal 0.0-10.0 Eo% 0.8 % Normal 0.0-6.6 Bas% 0.2 % Normal 0.0-1.1 Immature Grans 0.5 % Normal 0.0-5.0 NRBC % 0.0 /100WBC < 10/ 100 WBC Neut# 13.03 K/uL High 1.8-7.0 Lymph # 0.69 K/uL Low 1.0-4.0 [place] # 0.55 K/uL Normal 0.0-0.8 Eos # 0.12 K/uL Normal 0.0-0.5 Baso # 0.03 K/uL Normal 0.0-0.1 Immature Grans Absolute 0.07 K/uL NRBC # 0.00 K/uL Laboratory test finding 02/13/2019 [facility] Lipase 54 U /L Low 56-289 (315)- - Comprehensive Metabolic 02/13/2019 [facility] Glucose 125 mg/dL High 74-106 Panel (315)- - BUN 23 mg/dL High 7-18 Creatinine 0.9 mg/dL Normal 0.6-1.3 Glom Filtration Rate, Estimate >60 mL/min >60 If >60 mL/min >60 22 BUN/Creat 25.5 ratio Sodium 139 mmol/L Normal 136-145 Potassium 3.5 mmol/L Normal 3.5-5.1 Chloride 105 mmol/L Normal 98-107 Carbon Dioxide 24 mmol/L Normal 21-32 Anion Gap 10 mEq/L Normal 8-16 Calcium 8.5 mg/dL Normal 8.5-10.1 Total Protein 6.8 g/dL Normal 6.4-8.2 Albumin 3.6 g/dL Normal 3.4-5.0 Globulin 3.2 g/dL Normal 1.9-4.3 Alb/Glob 1.1 ratio Bilirubin,Total 1.7 mg/dL High 0.2-1.0 Sgot/Ast 15 U/L Normal 15-37 SGPT/Alt 17 U/L Normal 12-78 Alkaline Phosphatase 68 U/L Normal 45-117 Lactic Acid 02/13/2019 [facility] Lactic Acid 1.1 mmol/L Normal 0.4-1.9 (315)- - Lab Reflex >2.0 for Sepsis? Y Blood Culture 02/13/2019 [facility] Blood Culture NO GROWTH: FINAL 23 (315)- - Aerobic <SEE NOTE> Blood Culture Anaerobic NO GROWTH: FINAL <SEE NOTE> 24 Ast-GN67 02/13/2019 [facility] Nitrofurantoin 64 Intermediate (315)- - Trimethoprim/Sulfamethoxazole <=20 Susceptible Ampicillin >=32 Resistant Cefazolin <=4 Susceptible Ampicillin/Sulbactam 4 Susceptible Ciprofloxacin <=0.25 Susceptible Piperacillin/Tazobactam <=4 Susceptible Ceftazidime <=1 Susceptible Ceftriaxone <=1 Susceptible Cefepime <=1 Susceptible Levofloxacin <=0.12 Susceptible Imipenem <=0.25 Susceptible Gentamicin <=1 Susceptible Tobramycin <=1 Susceptible Urine Culture 02/13/2019 [facility] Urine Culture KLEBSIELLA PNEUM Abnormal 25 (315)- - <SEE NOTE> Quantity > 100,000 CFU/mL 26 Culture If 02/13/2019 [facility] Culture If CULTURE TO 27 Indicated Comment (315)- - Indicated Comment FOLLO <SEE NOTE> Source: URINE, CLEAN CAT <SEE NOTE> 28 Urinalysis With 02/13/2019 [facility] Urine Color YELLOW Yellow Microscopic (315)- - Urine Clarity SL CLOUDY Clear Urine Glucose - Dipstick NEGATIVE mg/dL Negative Urine Bilirubin - Dipstick NEGATIVE Negative Urine Ketone >=80 mg/dL High Negative Urine Specific [place] 1.025 Normal 1.010-1.030 Urine Blood MODERATE Abnormal Negative Urine PH 5.5 Low 6.5-7.5 Urine Protein - Dipstick 30 mg/dL High Negative Urine Urobilinogen - Dipstick 0.2 E.U./dL Normal 0.2-1.0 Urine Nitrite - Dipstick POSITIVE Abnormal Negative Urine Leuk Esterase SMALL Abnormal Negative Urine RBC 5-10 rbc/hpf High 0-2 Urine WBC 30-50 wbc/hpf High 0-7 Urine Epithelial Cells VERY FEW /lpf None Seen Urine Bacteria MANY Abnormal None Seen Urine Mucus SMALL None Seen Source: URINE, CLEAN CAT <SEE NOTE> 29 Aot Request 02/13/2019 [facility] Aot Request Test(s) added 30 (315)- - Tests to be added: Lipase Laboratory 12/22/2018 [facility] Vitamin 27.6 Low 30.0- 100.0 31, 32 test finding (315)- - D,25-Hydroxy ng/mL CBC with Auto 12/22/2018 [facility] White Blood 6.8 K/uL Normal 3.4-10.5 Diff-fcmg (315)- - Count Red Blood Count 4.72 M/uL Normal 4.20-5.80 Hemoglobin 15.3 gm/dL Normal 12.8-17.0 Hematocrit 45.9 % Normal 38.0-48.0 Mean Cell Volume 97.2 fl High 80.0-96.0 Mean Corpuscular HGB 32.4 pg Normal 27.0-33.0 Mean Corpuscular HGB Conc 33.3 g/dL Normal 31.7-36.0 Platelet Count 186 K/uL Normal 155-360 Red Cell Distri Width SD 45.1 fl Normal 36-51 Red Cell Distri Width %CV 12.8 % Normal 11.6-15.8 Mean Platelet Volume 10.2 fL Normal 6.6-10.6 Neut% 72.2 % Normal 33.0-73.0 Lymph % 18.9 % Low 20.0-42.0 [place] % 7.8 % Normal 0.0-10.0 Eo% 1.0 % Normal 0.0-6.6 Bas% 0.1 % Normal 0.0-1.1 Neut# 4.88 K/uL Normal 1.8-7.0 Lymph # 1.28 K/uL Normal 1.0-4.0 [place] # 0.53 K/uL Normal 0.0-0.8 Eos # 0.07 K/uL Normal 0.0-0.5 Baso # 0.01 K/uL Normal 0.0-0.1 Basic (BMP) 12/22/2018 [facility] Glucose 93 mg/dL Normal 74-106 (315)- - BUN 23 mg/dL High 7-18 Creatinine 0.9 mg/dL Normal 0.6-1.3 Glom Filtration Rate, Estimate >60 mL/min >60 If >60 mL/min >60 33 BUN/Creat 25.5 ratio Sodium 144 mmol/L Normal 136-145 Potassium 3.7 mmol/L Normal 3.5-5.1 Chloride 111 mmol/L High 98-107 Carbon Dioxide 28 mmol/L Normal 21-32 Anion Gap 5 mEq/L Low 8-16 Calcium 8.4 mg/dL Low 8.5-10.1 LDL Cholesterol 12/22/2018 [facility] Cholesterol 170 mg/ dL <200 34 Profile (315)- - Triglycerides 60 mg/dL <150 35 HDL Cholesterol 67 mg/dL >40 36 LDL-Cholesterol 91 mg/dL < 100 37 Testosterone,Free/Weakly 12/22/2018 [facility] Testosterone,Serum [phone] Bound (315)- - ng/dL Testosterone,%Free/Weakly BND 11.1 % 9.0-46.0 39 Testosterone,Free Weakly Bound 53.3 ng/dL 40.0-250.0 40 1 [id number] 2 Because ethnic data is not always readily available, this report includes an eGFR for both -Americans and non- Americans. The National Kidney Disease Education Program (NKDEP) does not endorse the use of the MDRD equation for patients that are not between the ages of 18 and 70, are , have extremes of body size, muscle mass, or nutritional status, or are non- or non-. According to the National Kidney Foundation, irrespective of diagnosis, the stage of the disease is based on the level of kidney function: Stage Description GFR(mL/min/1.73 m(2)) 1 Kidney damage with normal or decreased GFR 90 2 Kidney damage with mild decrease in GFR 60-89 3 Moderate decrease in GFR 30-59 4 Severe decrease in GFR 15-29 5 Kidney failure <15 (or dialysis) 3 Car Repairer Helper: [id number] Car Repairer Helper: [id number] 5 TO DROP OFF LATE IN THE WEEK OF 03/09 6 Microbiology results SOURCE Clean Catch Midstream FINAL RESULT No growth 7 Unless otherwise specified, testing performed by [email or web address] [place] [address] 8 To drop off 02/25 or later SEE 02/27 TRIAGE 9 Unless otherwise specified, testing performed by [email or web address] [place] [address] 10 To drop off 02/25 or later 11 Microbiology results COLONY COUNT >100,000 CFU/ML PRELIMINARY RESULT Gram Negative Arnaldo. ID & Sensitivity to Follow. 02/26/2019 2:24 PM FINAL RESULT Klebsiella pneumoniae (Isolate 1) Sensitivity Analysis Isolate 1 --------- AMIKACIN <=16 S AMOXICILLIN/CLAVULANATE <=8/4 S AMPICILLIN >16 R AMPICILLIN/SULBACTAM <=8/4 S CEFAZOLIN <=2 S CEFEPIME <=8 S CEFOTAXIME <=2 S CEFTRIAXONE <=1 S CEFUROXIME <=4 S CIPROFLOXACIN <=1 S ERTAPENEM <=0.5 S GENTAMYCIN <=2 S IMIPENEM <=1 S LEVOFLOXACIN <=2 S NITROFURANTOIN 64 I PIPERACILLIN/TAZOBACTAM <=16 S TETRACYCLINE <=4 S TOBRAMYCIN <=4 S TRIMETHOPRIM/SULFAMETHOXAZ <=2/38 S S=Sensitive;I=Indeterminate;R=Resistant 12 Draw 02/20 after office visit 13 Updated reference range on new analyzer 14 Updated reference range on new analyzer 15 Updated reference range 02-04-2019 16 Concerning GFR Guidelines for Americans: Normal function or mild renal disease, if clinically at risk: >/= 60 mL/min Moderately decreased: 30-59 Severely decreased: 15-29 Renal failure: <15 There is reduced accuracy above 60ml/min/1.73 m squared, but the numeric value may be clinically useful in the near 60 range 17 Concerning GFR Guidelines: Normal function or mild [...] drugs that are excreted by the kidneys. 18 Updated Reference Range 19 FEVER 102 20 NO GROWTH: FINAL REPORT 21 NO GROWTH: FINAL REPORT 22 Note: Persistent reduction for 3 months or more in an eGFR <60 mL/min/1.73 m2 defines CKD. Patients with eGFR values >/=60 mL/min/1.73 m2 may also have CKD if evidence of persistent proteinuria is present. The original MDRD equation for estimated GFR is not valid for patients less than 18 years of age. Additional information may be found at www.kdoqi.org. 23 NO GROWTH: FINAL REPORT 24 NO GROWTH: FINAL REPORT 25 KLEBSIELLA PNEUMONIAE 26 > 100,000 CFU/mL 27 CULTURE TO FOLLOW 28 URINE, CLEAN CATCH 29 URINE, CLEAN CATCH 30 Tests: Lipase Instructions: 31 E78.00 E29.1 E55.9 Z79.899 I10 32 Vitamin D deficiency has been defined by the [place] of [employer] and an Endocrine Society practice guideline as a level of serum 25-OH vitamin D less than 20 ng/mL (1,2). The Endocrine Society went on to further define vitamin D insufficiency as a level between 21 and 29 ng/mL (2). 1. IOM ([place] of [employer]). 2010. Dietary reference intakes for calcium and D. [place]: The National Academies Press. 2. Roosevelt MF, Amy NC, Yessica FENG, et al. Evaluation, treatment, and prevention of vitamin D deficiency: an Endocrine Society clinical practice guideline. JCEM. 2010; 96(7):1911-30. Performed at: RN - [facility] [address] [id number] Pipe Stem Aligner: Ary Zuniga MD, Phone: [phone] Note: Persistent reduction for 3 months or more in an eGFR <60 mL/min/1.73 m2 defines CKD. Patients with eGFR values >/=60 mL/min/1.73 m2 may also have CKD if evidence of persistent proteinuria is present. The original MDRD equation for estimated GFR is not valid for patients less than 18 years of age. Additional information may be found at www.kdoqi.org. 34 Reference Guidelines*: Desirable: ........... < 200 mg/dL Borderline High: ..... 200-239 mg/dL High: ................ >= 240 mg/dL * The National Cholesterol Education Program (NCEP) 35 Reference Guidelines*: Normal: ............. < 150 mg/dL Borderline High: .... 150-199 mg/dL High: ............... 200-499 mg/dL Very High: .......... > 500 mg/dL * Source: National Cholesterol Education Program (NCEP) 36 Reference Guidelines*: Low HDL: ..... < 40 mg/dL Normal: ..... 40-60 mg/dL Desirable: ... > 60 mg/dL *The National Cholesterol Education Program(NCEP) 37 Reference Guidelines*: Optimal:........... <100 mg/dL Near Optimal....... 100-129 mg/dL Borderline High.... 130-159 mg/dL High............... 160-189 mg/dL Very High.......... >=190 mg/dL * Source: National Cholesterol Education Program (NCEP) 38 Adult male reference interval is based on a population of healthy nonobese males (BMI <30) between 19 and 39 years old. Desirae et.al. JCEM 2017,102;5517-7642. PMID: [id number]. 39 This test was developed and its performance characteristics determined by [facility]. It has not been cleared or approved by the Food and Drug Administration. 40 Performed at: - [facility] [id number] Pipe Stem Aligner: Ary Zuniga MD, Phone: [phone] Performed at: - [facility] [id number] Pipe Stem Aligner: Cynthia Ramesh MD, Phone: [phone] Procedures Date Code Description Status 01/29/2018 [id number] Bone Mineral Density Test Completed 03/04/2015 [id number] Colonoscopy Completed Medical Devices Description No Information Available Encounters Type Date Location Provider Dx Diagnosis Office Visit 06/15/2019 [facility] Sam Dorado N39.0 Urinary tract 8:00a infection, site not specified G70.00 Myasthenia gravis without (acute) exacerbation Office Visit 04/16/2019 10:30a [facility] Mena Alfaro PA R60.0 Localized edema Z68.26 Body mass index (BMI) 26.0-26.9, adult Office Visit 02/20/2019 10:30a [facility] Sam Dorado, J18.9 Pneumonia, unspecified organism N39.0 Urinary tract infection, site not specified G70.00 Myasthenia gravis without (acute) exacerbation I25.10 Athscl heart disease of [place] coronary artery w/o ang pctrs N40.1 Benign prostatic hyperplasia with lower urinary tract symp Office Visit 12/24/2018 10:00a [facility] Sam Dorado, G70.00 Myasthenia gravis without (acute) exacerbation Z95.2 Presence of prosthetic heart valve E78.00 Pure hypercholesterolemia, unspecified M85.89 Oth disrd of bone density and structure, multiple sites N40.1 Benign prostatic hyperplasia with lower urinary tract symp M15.9 Polyosteoarthritis, unspecified I25.10 Athscl heart disease of [place] coronary artery w/o ang pctrs H40.9 Unspecified glaucoma E29.1 Testicular hypofunction Z79.899 Other lobsterman (current) drug therapy R91.1 Solitary pulmonary nodule F51.01 Primary insomnia Z68.26 Body mass index (BMI) 26.0-26.9, adult Assessments Date Code Description Provider 06/15/2019 N39.0 Acute urinary tract infection Sam Dorado MD 06/15/2019 G70.00 Myasthenia gravis without (acute) Sam Dorado MD exacerbation 04/16/2019 R60.0 Localized edema Mena Alfaro PA 04/16/2019 Z68.26 Body mass index (BMI) 26.0-26.9, adult Mena Alfaro PA 03/09/2019 N39.0 Urinary tract infection, site not [facility] specified 02/25/2019 N39.0 Urinary tract infection, site not [facility] specified 02/20/2019 J18.9 Pneumonia, unspecified organism Sam Dorado MD 02/20/2019 J18.9 Pneumonia, unspecified organism Sam Dorado MD 02/20/2019 N39.0 Urinary tract infection, site not Sam Dorado MD specified 02/20/2019 G70.00 Myasthenia gravis without (acute) Sam Dorado MD exacerbation 02/20/2019 I25.10 Atherosclerotic heart disease of [place] Sam Dorado MD coronary artery with 02/20/2019 J18.9 Pneumonia, unspecified organism Schedule, Laboratory 02/20/2019 N40.1 Benign prostatic hyperplasia with lower Sam Dorado MD urinary tract sympto 02/20/2019 J18.9 Pneumonia, unspecified organism [facility] 02/20/2019 J18.9 Pneumonia, unspecified organism [facility] [place] [facility] 12/24/2018 G70.00 Myasthenia gravis without (acute) Sam Dorado MD exacerbation 12/24/2018 Z95.2 Presence of prosthetic heart valve Sam Dorado MD 12/24/2018 E78.00 Pure hypercholesterolemia, unspecified Sam Dorado MD 12/24/2018 M85.89 Other specified disorders of bone density Sam Dorado MD and structure, mul 12/24/2018 N40.1 Benign prostatic hyperplasia with lower Sam Dorado MD urinary tract sympto 12/24/2018 M15.9 Polyosteoarthritis, unspecified Sam Dorado MD 12/24/2018 I25.10 Atherosclerotic heart disease of [place] Sam Dorado MD coronary artery with 12/24/2018 H40.9 Unspecified glaucoma Sam Dorado MD 12/24/2018 E29.1 Testicular hypofunction Sam Dorado MD 12/24/2018 Z79.899 Other shelter (current) drug therapy Sam Dorado MD 12/24/2018 R91.1 Solitary pulmonary nodule Sam Dorado MD 12/24/2018 F51.01 Primary insomnia Sam Dorado MD 12/24/2018 Z68.26 Body mass index (BMI) 26.0-26.9, adult Sam Dorado MD Plan of Treatment Future Appointment(s):07/02/2019 10:30 am - Sam Dorado MD at [facility]2018 - Sam Dorado MDN39.0 Acute urinary tract infectionFollow up: Follow up as wwpsgrnitM56.00 Myasthenia gravis without (acute) exacerbation Functional Status Description No Information Available Mental Status Description No Information Available Referrals Description No Information Available
[2019-07-11 10:31] VITALS: BP 131/80
--- NOTE | 2019-07-11 12:50 | UC ---
Ear Complaint HPI - HPI Summary HPI Summary: 74 year old male with PMH + for hearing loss, wears hearing aides, in past has gotten "filter" portion of hearing aide stuck in ear, required removal. REmvoed hearing aide yesterday, did not see piece, did not put new hearing aide in, comes for removal of part. no pain, no fever. - History of Current Complaint Chief Complaint: UCEar Stated Complaint: FB RIGHT EAR(HEARING AID TUBE) Time Seen by Provider: 07/11/19 11:13 Hx Obtained From: Patient, Family/Cash Application Clerk - Onset/Duration: Sudden Onset Severity Currently: None Pain Intensity: 0 Pain Scale Used: 0-10 Numeric - Allergies/Home Medications Allergies/Adverse Reactions: Allergies Allergy/AdvReac Type Severity Reaction Status Date / Time hay fever Allergy Congestion Uncoded 07/11/19 10:31 Home Medications: Home Medications Cholecalciferol TAB* [Vitamin D TAB*] 1,000 unit PO DAILY 07/11/19 [History Confirmed 07/11/19] cephALEXin [Keflex] 500 mg PO TID 07/11/19 [History Confirmed 07/11/19] PMH/Surg Hx/FS Hx/Imm Hx Previously Healthy: No - Surgical History Surgical History: Yes Surgery Procedure, Year, and Place: 1956 APPENDECTOMY, [facility]. TONSILLECTOMY AND ADENOIDECTOMY AT AGE 2, [facility]. 1969 RIGHT KNEE SURGERY, [facility]. 1984 1989,1992 RIGHT KNEE SURGERY, [facility] [place]. July 2016 open heart. 1998 TURP, [facility] [place]. 2004 RIGHT KNEE TOTAL REPLACEMENT, [facility] [place]. 2005 RIGHT KNEE MANIPULATION, [facility] [place]. 2009 LEFT KNEE ARTHROSCOPIC SURGERY, [facility] [place]. 07/2016 OPEN HEART SURGERY WITH VALVE REPLACEMENT, CABG, ST, ANTOLIN, [place]. 2011 BILATERAL CATARACT EXTRACTION WITH IOL IMPLANT, [facility]. hernia 11/2016 - Family History Known Family History: Positive: Cardiac Disease, Other - COLON CA - Social History Alcohol Use: None Substance Use Type: None Smoking Status (MU): Never Smoked Tobacco Type: Pipe Amount Used/How Often: VERY LIGHT, VERY SHORT TIME Have You Smoked in the Last Year: No When Did the Patient Quit Smoking/Using Tobacco: 50+ YEARS AGO - Immunization History Most Recent Influenza Vaccination: fall 2014 Vaccination Up to Date: Yes Review of Systems All Other Systems Reviewed And Are Negative: Yes Constitutional: Negative: Fever, Chills, Fatigue Eyes: Negative: Blurred Vision, Diplopia, Drainage, Eye Redness ENT: Negative: Sore Throat, Ear Ache Respiratory: Negative: Shortness Of Breath Is Patient Immunocompromised?: No Physical Exam Triage Information Reviewed: Yes Appearance: Well-Appearing, No Pain Distress, Well-Nourished Vital Signs: Initial Vital Signs Temp 98.2 F 07/11/19 10:24 Pulse 68 07/11/19 10:24 Resp 18 07/11/19 10:24 BP 131/80 07/11/19 10:24 Pulse Ox 98 07/11/19 10:24 Vital Signs Reviewed: Yes Eyes: Positive: Conjunctiva Clear ENT: Positive: TMs normal - after removal, Other - right ear with thin, membranous structure seen at mid ear canal, compared with hearing aide- filter portion. removed with alligator forecepts easily under direct visulization, no complaints. Neck: Positive: Supple Skin Exam: Normal Ear Complaint Course/Dx - Course Course Of Treatment: - Removal of hearing aide portion, uncomplicated, ear drum intact. - Differential Dx/Diagnosis Differential Diagnosis/HQI/PQRI: Foreign Body Provider Diagnosis: Ear foreign body Discharge ED - Sign-Out/Discharge Documenting (check all that apply): Patient Departure All imaging exams completed and their final reports reviewed: No Studies - Discharge Plan Condition: Good Disposition: HOME Patient Education Materials: Ear Foreign Body (ED) Referrals: Sam Dorado MD [Primary Care Provider] - Additional Instructions: - Removal of hearing aide portion, uncomplicated, ear drum intact. - Billing Disposition and Condition Condition: GOOD Disposition: Home
== END 2019-07-11 11:25 | disposition home or self-care (01) ==
LOC: UCCORT 09:48
DX: T16.1XXA Foreign body in right ear, initial encounter (principal); Z91.09 Other allergy status, other than to drugs and biological substances; Z96.651 Presence of right artificial knee joint; X58.XXXA Exposure to other specified factors, initial encounter; Y92.9 Unspecified place or not applicable
CPT/HCPCS: 69200; 99212; G0463

== ENCOUNTER 2019-09-17 07:43 | Emergency (ER) | payer MEDICARE, BC ==
--- OUTSIDE RECORDS SUMMARY | 2019-09-17 07:54 | XMS REPORT | Continuity of Care Document ---
:1945 External Reference #:[id number] Author Name Radha Leonardo M.D. (transmitted by agent of provider Roger Nolasco) Address [address], [address] [place] [id number] Care Team Providers Name Role Phone Sam Dorado MD - Family Care Team Information Maintenance Mechanic Engine [phone] Medicine Estela Perdomo MD - Cardiovascular Care Team Information Maintenance Mechanic Engine Disease Radha Leonardo MD - Neurology Care Team Information Maintenance Mechanic Engine Problems Active Problems Provider Date Myasthenia gravis, [...] M.D. Onset: 08/03/2016 Atherosclerotic heart disease of [place] Estela Perdomo M.D. Onset: 06/22/2016 coronary artery with unspecified angina pectoris Dyspnea Estela Perdomo M.D. Onset: 06/22/2016 Social History Type Date Description Comments Sex Unknown Tobacco Use Start: Unknown Never Smoked Cigarettes Smoking Status Reviewed: 09/01/19 Never Smoked Cigarettes ETOH Use Denies alcohol [...] Patches 24HR Simvastatin 1 po qd Unknown 40mg Tablets Levitra 1 by mouth every 10tabs [...] Available Vital Signs Date Vital Result Comment 09/01/2019 9:34am Height 69 inches 5'9" Weight 176.00 lb Heart Rate 65 /min BP Systolic Sitting 132 mmHg BP Diastolic Sitting 71 mmHg Respiratory Rate 16 /min Body Temperature 97.7 F Pain Level 0 O2 % BldC Oximetry 97 % BMI (Body Mass Index) 26.0 kg/m2 05/18/2019 1:43pm Height 69 inches 5'9" Weight 175.00 lb with shoes BP Systolic Sitting 111 mmHg Lue reg cuff BP Diastolic Sitting 62 mmHg Lue reg cuff BP Systolic Standing 111 mmHg Lue reg cuff BP Diastolic Standing 72 mmHg Lue reg cuff BMI (Body Mass Index) 25.8 kg/m2 Ejection Fraction 55-60% Results Test Acquired Date Facility Test Result H/L Range Note Lab Results 06/26/2019 N2N/CCD Import Cholesterol 186 mg/dL 1, 2 Triglycerides 54 mg/dL 3 HDL Cholesterol 62 mg/dL 4 LDL-Cholesterol 113 mg/dL 5 Testosterone,Serum 393 ng/dL 264-916 6 Lab Results 06/26/2019 N2N/[facility]D Import Testosterone,Serum 393 ng/dL 264- 916 7 Basic Metabolic 06/26/2019 N2N/CCD Import Glucose 90 mg/dL 74-106 Panel BUN 21 mg/dL High 7-18 Creatinine 0.9 mg/dL 0.6-1.3 Glom Filtration Rate, Estimate >60 mL/min If >60 mL/min 8 BUN/Creat 23.3 ratio Sodium 141 mmol/L 136-145 Potassium 4.0 mmol/L 3.5-5.1 Chloride 109 mmol/L High 98-107 Carbon Dioxide 28 mmol/L 21-32 Anion Gap 4 mEq/L Low 8-16 Calcium 8.7 mg/dL 8.5-10.1 Lab Results 06/26/2019 N2N/CCD Import Vitamin 35.7 ng/mL 30.0-100.0 9 D,25-Hydroxy CBS W/Automated 06/26/2019 N2N/CCD Import White Blood Count 6.5 K/uL 3.4 -10.5 Diff Red Blood Count 4.73 M/uL 4.20-5.80 Hemoglobin 14.8 gm/dL 12.8-17.0 Hematocrit 46.0 % 38.0-48.0 Mean Cell Volume 97.3 fl High 80.0-96.0 Mean Corpuscular HGB 31.3 pg 27.0-33.0 Mean Corpuscular HGB Conc 32.2 g/dL 31.7-36.0 Platelet Count 319 K/uL 155-360 Red Cell Distri Width SD 43.0 fl 36-51 Red Cell Distri Width %CV 12.0 % 11.6-15.8 Mean Platelet Volume 9.3 fl 6.6-10.6 Neut% 68.6 % 33.0-73.0 Lymph % 23.3 % 20.0-42.0 [place] % 5.6 % 0.0-10.0 Eo% 1.4 % 0.0-6.6 Bas% 0.6 % 0.0-1.1 Immature Grans 0.5 % 0.0-5.0 NRBC % 0.0 /100WBC Neut# 4.44 K/uL 1.8-7.0 Lymph # 1.51 K/uL 1.0-4.0 [place] # 0.36 K/uL 0.0-0.8 Eos # 0.09 K/uL 0.0-0.5 Baso # 0.04 K/uL 0.0-0.1 Immature Grans Absolute 0.03 K/uL NRBC # 0.00 K/uL Lab Results 06/26/2019 N2N/CCD Import Prostate Specific Antigen 3.17 ng/mL 10 1 NO ORDER E87.00, E29.1, I25.10, Z79.899 E87.00, E29.1, I25.10, Z79.899 E87.00, E29.1, I25.10, Z79.899 2 Reference Guidelines*: Desirable: ........... < 200 mg/dL Borderline High: ..... 200-239 mg/dL High: ................ >= 240 mg/dL * The National Cholesterol Education Program (NCEP) 3 Reference Guidelines*: Normal: ............. < 150 mg/dL Borderline High: .... 150-199 mg/dL High: ............... 200-499 mg/dL Very High: .......... > 500 mg/dL * Source: National Cholesterol Education Program (NCEP) 4 Reference Guidelines*: Low HDL: ..... < 40 mg/dL Normal: ..... 40-60 mg/dL Desirable: ... > 60 mg/dL *The National Cholesterol Education Program(NCEP) 5 Reference Guidelines*: Optimal:........... <100 mg/dL Near Optimal....... 100-129 mg/dL Borderline High.... 130-159 mg/dL High............... 160-189 mg/dL Very High.......... >=190 mg/dL * Source: National Cholesterol Education Program (NCEP) 6 Reference Guidelines*: Desirable: ........... < 200 mg/dL Borderline High: ..... 200-239 mg/dL High: ................ >= 240 mg/dL * The National Cholesterol Education Program (NCEP) 7 Reference Guidelines*: Desirable: ........... < 200 mg/dL Borderline High: ..... 200-239 mg/dL High: ................ >= 240 mg/dL * The National Cholesterol Education Program (NCEP) 8 Note: Persistent reduction for 3 months or more in an eGFR <60 mL/min/1.73 m2 defines CKD. Patients with eGFR values >/=60 mL/min/1.73 m2 may also have CKD if evidence of persistent proteinuria is present. The original MDRD equation for estimated GFR is not valid for patients less than 18 years of age. Additional information may be found at www.kdoqi.org. 9 Reference Guidelines*: Desirable: ........... < 200 mg/dL Borderline High: ..... 200-239 mg/dL High: ................ >= 240 mg/dL * The National Cholesterol Education Program (NCEP) 10 Reference Guidelines*: Desirable: ........... < 200 mg/dL Borderline High: ..... 200-239 mg/dL High: ................ >= 240 mg/dL * The National Cholesterol Education Program (NCEP) Procedures Date Code Description Status 05/18/2019 49196 EKG Tracing & Interpretation Completed 02/13/2018 50114886 Colonoscopy Completed Medical Devices Description No Information Available Encounters Type Date Location Provider Dx Diagnosis Office Visit 05/18/2019 [facility] Estela Perdomo, Z95.2 Presence of 1:50p Of Taylor Garza prosthetic heart valve I35.0 Nonrheumatic aortic (valve) stenosis I25.10 Athscl heart disease of [place] coronary artery w/o ang pctrs I10 Essential (primary) hypertension E78.5 Hyperlipidemia, unspecified Assessments Date Code Description Provider 09/01/2019 G70.00 Myasthenia gravis without (acute) exacerbation Radha Leonardo M.D. 09/01/2019 Z79.899 Other ferry terminal agent (current) drug therapy Radha Leonardo M.D. 05/18/2019 Z95.2 Presence of prosthetic heart valve Estela Perdomo M.D. 05/18/2019 I35.0 Nonrheumatic aortic (valve) stenosis Estela Perdomo M.D. 05/18/2019 I25.10 Atherosclerotic heart disease of [place] Estela Perdomo M.D. coronary artery with 05/18/2019 I10 Essential (primary) hypertension Estela Perdomo M.D. 05/18/2019 E78.5 Hyperlipidemia, unspecified Estela Perdomo M.D. Plan of Treatment Future Appointment(s):02/23/2020 9:30 am - Radha Leonardo M.D. at [facility]11/24/2019 9:10 am - Viktor Jeter MD at [facility] AT Ebwlnhlt82/30/2020 9:00 am - Viktor Jeter MD at [facility] AT Dpwbzjug73/26/2019 - Radha Leonardo M.D.G70.00 Myasthenia gravis without (acute) exacerbationFollow up:6 nhembeX52.899 Other ferry terminal agent (current) drug therapy Functional Status Description No Information Available Mental Status Description No Information Available Referrals Description No Information Available
--- NOTE | 2019-09-17 08:30 | ED ---
GI/ HPI - HPI Summary HPI Summary: 74 yr old male with the complaint of gross hematuria. Onset of symptoms last evening. He states he has urinated every couple hours bloody urine. He feels clammy, nauseated and a little light headed now this morning. He has a history of prior TURP and he had CABG and Aortic Valve replacement recently. - History of Current Complaint Chief Complaint: UCGU Time Seen by Provider: 09/17/19 08:00 Stated Complaint: BLOOD IN URINE,SHAKY,GENERAL ILL FEELING Pain Intensity: 0 - Allergy/Home Medications Allergies/Adverse Reactions: Allergies Allergy/AdvReac Type Severity Reaction Status Date / Time hay fever Allergy Congestion Uncoded 09/17/19 08:07 PMH/Surg Hx/FS Hx/Imm Hx Endocrine/Hematology History: Denies: Hx Diabetes, Hx Thyroid Disease Cardiovascular History: Reports: Hx Coronary Artery Disease - ARTERIOSCLEROSIS WITH CABG, Hx Hypertension, Hx Valvular Heart Disease - AORTIC STENOSIS WITH AORTIC VALVE REPLACEMENT, Other Cardiovascular Problems/Disorders Respiratory History: Reports: Other Respiratory Problems/Disorders - SOB BULBAR `MYASTHENIA AFFECT BREATHING SOMETIMES Denies: Hx Asthma, Hx Chronic Obstructive Pulmonary Disease (COPD) GI History: Denies: Hx Ulcer History: Reports: Other Problems/Disorders - HX OF BPH WITH TURP - 1998 Denies: Hx Dialysis, Hx Renal Disease Musculoskeletal History: Reports: Hx Arthritis - BILATERAL HANDS, KNEES Sensory History: Reports: Hx Cataracts, Hx Contacts or Glasses - GLASSES, Hx Glaucoma - LEFT, Hx Hearing Aid - BILATERAL Opthamlomology History: Reports: Hx Cataracts, Hx Contacts or Glasses - GLASSES , Hx Glaucoma - LEFT - Surgical History Surgery Procedure, Year, and Place: 4 APPENDECTOMY, [facility]. TONSILLECTOMY AND ADENOIDECTOMY AT AGE 2, [facility]. 1969 RIGHT KNEE SURGERY, [facility]. 1984 1989,1992 RIGHT KNEE SURGERY, [facility] [place]. July 2016 open heart. 1998 TURP, [facility] [place]. 2004 RIGHT KNEE TOTAL REPLACEMENT, [facility] [place]. 2005 RIGHT KNEE MANIPULATION, [facility] [place]. 2009 LEFT KNEE ARTHROSCOPIC SURGERY, [facility] [place]. 07/2016 OPEN HEART SURGERY WITH VALVE REPLACEMENT, CABG, ANTOLIN [place]. 2012 BILATERAL CATARACT EXTRACTION WITH IOL IMPLANT, [facility]. hernia 11/2016 Hx Anesthesia Reactions: Yes - 1969- 2004 SEVERE NAUSEA AND VOMITING -NO PROBLEMS AFTER Infectious Disease History: Yes Infectious Disease History: Reports: Hx Shingles - Denies: Hx Clostridium Difficile, Hx Hepatitis, Hx Human Immunodeficiency Virus (HIV), Hx of Known/Suspected MRSA, Hx Tuberculosis, Hx Known/Suspected VRE , Hx Known/Suspected VRSA, History Other Infectious Disease, Traveled Outside the [place] in Last 30 Days - Family History Known Family History: Positive: Cardiac Disease, Other - COLON CA - Social History Occupation: Retired Lives: With Family Alcohol Use: None Substance Use Type: Reports: None Smoking Status (MU): Former Smoker Type: Pipe Amount Used/How Often: VERY LIGHT, VERY SHORT TIME Have You Smoked in the Last Year: No Review of Systems Constitutional: Negative Positive: hematuria All Other Systems Reviewed And Are Negative: Yes Physical Exam Triage Information Reviewed: Yes Vital Signs On Initial Exam: Initial Vitals Temp Pulse Resp BP Pulse Ox 97 F 64 16 139/82 99 09/17/19 07:57 09/17/19 07:57 09/17/19 07:57 09/17/19 07:57 09/17/19 07:57 Vital Signs Reviewed: Yes Appearance: Positive: Well-Appearing, No Pain Distress Skin: Positive: Warm, Skin Color Reflects Adequate Perfusion Head/Face: Positive: Normal Head/Face Inspection Eyes: Positive: EOMI ENT: Positive: Normal ENT inspection Neck: Positive: Nontender Respiratory/Lung Sounds: Positive: Clear to Auscultation, Breath Sounds Present Cardiovascular: Positive: RRR. Negative: Murmur Abdomen Description: Negative: Distended Musculoskeletal: Positive: Strength/ROM Intact Neurological: Positive: Sensory/Motor Intact, Alert, Oriented to Person Place, Time, CN Intact II-III, Normal Gait, Speech Normal Psychiatric: Positive: Normal Diagnostics - Vital Signs Vital Signs Temp Pulse Resp BP Pulse Ox 09/17/19 07:57 97 F 64 16 139/82 99 - Laboratory Lab Results: Lab Results 09/17/19 Range/Units 08:08 POC Urine Color Red POC Urine Clarity Other POC Urine pH 5.0 (5-9) POC Ur Specif [place] 1.015 (1.010-1.030) POC Urine Protein 3+ A (Negative) POC Ur Glucose (UA) Trace (Negative) POC Urine Ketones 2+ A (Negative) POC Urine Blood 3+ A (Negative) POC Urine Nitrite Negative (Negative) POC Urine Bilirubin 3+ A (Negative) POC Urine Urobilinogen 4.0 A (Negative) POC U Leukocyte Esteras 3+ A (Negative) Lab Statement: Any lab studies that have been ordered have been reviewed, and results considered in the medical decision making process. GIGU Course/Dx - Course Course Of Treatment: 74 yr old discussed with Myrna Nguyen NP at [place] [facility] and they are expecting the patient in transfer. - Diagnoses Provider Diagnoses: Hematuria Discharge ED - Sign-Out/Discharge Documenting (check all that apply): Patient Departure All imaging exams completed and their final reports reviewed: No Studies - Discharge Plan Condition: Good Disposition: TRANS HIGHER LVL OF CARE FAC Patient Education Materials: Hematuria (ED) Referrals: Sam Dorado MD [Primary Care Provider] - - Billing Disposition and Condition Condition: GOOD Disposition: Trans Higher Lvl of Care Fac
[2019-09-17 08:40] VITALS: BP 148/77
--- NOTE | 2019-09-19 10:26 | UC ---
- Progress Note Progress Note: + E. Coli pt was sent to ED please contact pt for update, ? abx culture pending mirna 09/19/19 Course/Dx - Diagnoses Provider Diagnoses: Hematuria Discharge ED - Sign-Out/Discharge Documenting (check all that apply): Post-Discharge Follow Up All imaging exams completed and their final reports reviewed: No Studies - Discharge Plan Condition: Good Disposition: TRANS HIGHER LVL OF CARE FAC Patient Education Materials: Hematuria (ED) Referrals: Sam Dorado MD [Primary Care Provider] - - Billing Disposition and Condition Condition: GOOD Disposition: Trans Higher Lvl of Care Fac
== END 2019-09-17 08:35 | disposition short-term general hospital (02) ==
LOC: UCCORT 07:43
DX: R31.9 Hematuria, unspecified (principal); Z95.1 Presence of aortocoronary bypass graft; Z91.09 Other allergy status, other than to drugs and biological substances; Z87.891 Personal history of nicotine dependence
CPT/HCPCS: 81003; 87077; 87086; 87186; 99213; G0463